=== PATIENT | male | born 1960 | race Hispanic/Latino ===

== ENCOUNTER 2019-05-31 18:44 | Inpatient (IN) | payer OTHER ==
[~2019-05-31 18:44] MED LIST: ISOVUE-370 76%-LOCM 1 ML ONE
--- NOTE | 2019-05-31 19:11 | CT ---
EXAM: BRAIN CT WITHOUT IV CONTRAST: 05/31/19 HISTORY: Syncopal episode, unresponsive. Concern for stroke. FINDINGS: Severe bilateral atrophy, particularly for patient's stated age. No focal mass or midline shift. No i ntra or extra-axial hemorrhage. Endotracheal tube in place with some fluid in the posterior nasophary nx, nasal cavity and sinuses. The mastoids are clear. IMPRESSION: Marked atrophy. No mass or bleed. Fluid in the nasopharynx, nasal cavity and sinuses, presumably seco ndary to intubation. Findings discussed with Dr. Quinones in the Emergency Room at 6:53 p.m. Code CR POS: [facility]
[2019-05-31 19:25] LABS: Actual Bicarbonate (HCO3a) 20.1 mEq/L (22-28); Analyzer IN Cardio ER; Base Excess (BEa) -5.2 mEq/L (-2.0 to +3.0); CO2 Tension 38.9 mmHg (35.0-45.0); Calcium, Ionized 1.08 mmol/L (1.12-1.30); O2 Tension (PaO2) 157.8 mmHg (80.0-100.0); Potassium - ABG Lab 3.97 mmol/L (3.70-5.30); pH, Arterial 7.33 (7.35-7.45)
[2019-05-31 19:26] LABS: Hemoglobin (Hb) 2.9 g/dL (14.0-18.0)
[2019-05-31 19:27] LABS: ALV-art Gradient 221.375 (0-20); Puncture Site LBA
--- NOTE | 2019-05-31 19:30 | CT ---
CT ANGIOGRAM HEAD WITH 3D RENDERING CT ANGIOGRAM NECK WITH 3D RENDERIN05/31/19 HISTORY: Level I stroke, syncopal episode, unresponsive. FINDINGS: The NG tube is noted to be coiled up within the pharynx. Endotracheal tube is noted in place. There i s a second right sided nasal tube which extends into the oropharynx. There are bilateral pleural effu sions, much larger on the left side with patchy bilateral interstitial and alveolar opacity changes t hroughout both lungs concerning for edema and/or pneumonia. CT ANGIO NECK: There are some scattered calcific plaques noted bilaterally. There are some up to borderline sized pr evascular lymph nodes in the left anterior superior mediastinum up to 0.9 cm in size. The origins of the right and left vertebral arteries and common carotid arteries appear within normal limits. There are some calcified plaque changes at the bifurcation regions but no hemodynamically significant steno sis, using NASCET criteria. The right and left vertebral arteries and internal carotid arteries appear unremarkable in the neck. Intracranially, there are some calcified plaque changes involving the intracranial internal carotid a rteries bilaterally. No evidence for major branch occlusion. No evidence for aneurysm. No M1 segment occlusion. IMPRESSION: Some calcified plaque changes bilaterally but no evidence for hemodynamically significant stenosis wi thin the neck. No evidence for major branch occlusion or intracranial aneurysm. NG tube is coiled within the oropharynx. Bilateral pleural effusions much larger on the left side wi th patchy bilateral pulmonary parenchymal changes concerning for asymmetric edema and/or pneumonia. Findings discussed with Dr. Quinones at 7:15 p.m. Code CR POS: [facility]
[2019-05-31 19:45] LABS: INR-International Normal Ratio 1.6; Prothrombin Time 18.7 SEC (12.0-14.7)
[2019-05-31 19:46] LABS: PTT 34.2 SEC (22.9-36.1)
[2019-05-31 20:00] LABS: ALT (SGPT) 9 U/L (8-55); AST (SGOT) 21 U/L (5-34); Acetaminophen Less than 6.0 mcg/mL (10.0-30.0); Albumin 2.1 g/dL (3.5-5.0); Alcohol Less than 10 mg/dL (Less than 10); Alkaline Phosphatase 103 U/L (40-150); Anion Gap 17 mmol/L (10-20); BUN (Urea Nitrogen) 21 mg/dL (8.4-25.7); Bilirubin, Total 0.8 mg/dL (0.2-1.2); Calc. Creatinine Clearance 0 mL/min (70-130); Calcium 7.6 mg/dL (7.8-10.44); Carbon Dioxide 17 mmol/L (22-29); Chloride 105 mmol/L (98-107); Estimated GFR-MDRD 53; Globulin 4.2 g/dL (2.4-3.5); Glucose 124 mg/dL (70-105); Magnesium 3.2 mg/dL (1.6-2.6); Potassium 3.9 mmol/L (3.5-5.1); Protein, Total 6.3 g/dL (6.0-8.3); Salicylate Less than 8.0 mg/dL (15.0-30.0); Sodium 135 mmol/L (136-145)
[2019-05-31 20:11] LABS: Hemoglobin 2.6 g/dL (14.0-18.0)
[2019-05-31 20:14] LABS: CKMB 3.7 ng/mL (0-6.6)
[2019-05-31] MEDS ORDERED: Piperacillin/Tazobactam 4.5 GM VIAL ONE (20:26)
[2019-05-31 20:30] LABS: #Eosinphils 0.1 thou/uL (0.0-0.7); #Lymphocytes 0.6 thou/uL (1.20-3.40); #Monocytes 0.8 thou/uL (0.11-0.59); #Neutrophils 6.6 thou/uL (1.40-6.50); %Basophils 0.3 % (0.0-1.0); %Eosinophils 0.6 % (0.0-10.0); %Lymphocytes 7.2 % (21.0-51.0); %Monocytes 9.7 % (0.0-10.0); %Neutrophils 82.2 % (42.0-75.0); Anisocytosis MODERATE=16-30 cells (100X) (0-5/hpf); Hypochromia MODERATE=16-30 cells (100X) (0-5/hpf); MDiff Complete? YES; Mean Corpuscular HGB CONC 29.8 g/dL (32.0-36.0); Mean Corpuscular Hemoglobin 27.2 pg (27.0-31.0); Mean Corpuscular Volume 91.3 fL (78.0-98.0); Mean Platelet Volume 8.2 fL (7.4-10.4); Platelet Count 168 thou/uL (130-400); Platelet Morphology Comment Appears Adequate; RBC Distribution Width 17.8 % (11.5-14.5); Red Blood Cell (RBC) Count 0.96 mill/uL (4.70-6.10); Reflex for Review?? YES
--- NOTE | 2019-05-31 20:40 | RAD ---
EXAM: CHEST ONE VIEW: 05/31/19 HISTORY: Altered mental status, intubation. NG tube and endotracheal tubes are in satisfactory location. Bilateral pleural effusions, larger on t he left side. Bilateral vascular congestion with patchy bilateral interstitial and alveolar opacity c hanges in the perihilar regions and lower lung zones bilaterally. Appearance could certainly be consi stent with that of asymmetric pulmonary edema, although the possibility of bilateral pneumonia could have a similar appearance. IMPRESSION: NG tube and endotracheal tubes in satisfactory location. Upper range of normal sized heart. Bilateral pleural effusions, larger on the left side with bilateral vascular congestion and patchy bilateral i nterstitial and alveolar opacity changes, evidence for asymmetric bilateral edema versus patchy bilat eral pneumonia. POS: [facility]
[2019-05-31 21:15] LABS: Bilirubin Negative (Negative); Blood, Urine Negative (Negative); Clarity Clear (Clear); Glucose, Urine (Dipstick) Normal (Negative); Leukocyte Negative Leu/uL (Negative); Nitrite Negative (Negative); Protein, Urine (Dipstick) 20 mg/dL (Neg-Trace); Urobilinogen Normal mg/dL (Less than 2)
--- NOTE | 2019-05-31 21:29 | RAD ---
EXAM: CHEST ONE VIEW: 05/31/19 HISTORY: Follow-up central line placement. Left central line noted in place with the tip in the upper superior vena cava. Again noted are bilate ral pleural effusions, larger on the left side as well as bilateral interstitial and alveolar nodular opacity changes throughout both lungs, stable. NG tube and endotracheal tubes remain in satisfactory location. IMPRESSION: Left central line placement without pneumothorax or other acute process. POS: [facility]CK
[2019-05-31 21:44] LABS: Hemoglobin 5.2 g/dL (14.0-18.0)
[2019-05-31] MEDS ORDERED: Propofol 1,000 MG/100 ML VIAL IV ONE (21:57)
[2019-05-31] MEDS ORDERED: Ondansetron PF 4 MG/2 ML Vial IVP PRN (22:07)
[2019-05-31] MEDS ORDERED: Ondansetron ODT 4 MG TAB PO PRN (22:07)
[2019-05-31] MEDS ORDERED: Acetaminophen 650 MG Suppository PR PRN (22:07)
[2019-05-31] MEDS ORDERED: Acetaminophen 325 MG TAB PO PRN (22:07)
[2019-05-31] MEDS ORDERED: Calcium Gluc 4.6 MEQ/10 ML (100 MG/ML) SLOW IVP SCH (22:17)
[2019-05-31 22:41] LABS: #Lymphocytes 0.7 thou/uL (1.20-3.40); #Monocytes 0.6 thou/uL (0.11-0.59); #Neutrophils 6.1 thou/uL (1.40-6.50); %Basophils 0.4 % (0.0-1.0); %Eosinophils 0.2 % (0.0-10.0); %Lymphocytes 8.9 % (21.0-51.0); %Monocytes 8.1 % (0.0-10.0); %Neutrophils 82.5 % (42.0-75.0); Hemoglobin 5.4 g/dL (14.0-18.0); Mean Corpuscular HGB CONC 31.9 g/dL (32.0-36.0); Mean Corpuscular Hemoglobin 28.3 pg (27.0-31.0); Mean Corpuscular Volume 88.5 fL (78.0-98.0); Mean Platelet Volume 7.4 fL (7.4-10.4); Platelet Count 169 thou/uL (130-400); Red Blood Cell (RBC) Count 1.92 mill/uL (4.70-6.10); White Blood Cell (WBC) Count 7.4 thou/uL (4.8-10.8)
[2019-05-31] MEDS ORDERED: Ventilator Sedation Protocol 1 EACH FS ONE (22:47)
[2019-05-31 23:05] LABS: Troponin I 0.084 ng/mL (< 0.028)
[2019-05-31 23:30] LABS: Lactic Acid 1.5 mmol/L (0.5-2.2)
[2019-05-31] MEDS ORDERED: Morphine 2 MG/ML SYRINGE SLOW IVP PRN (23:31)
[2019-05-31] MEDS ORDERED: DISCONTINUE PREVIOUS NARCOTIC PAIN MEDICATIONS AND BENZODIAZEPINES FS SCH (23:31)
[2019-05-31] MEDS ORDERED: Propofol 1,000 MG/100 ML VIAL IV PRN (23:31)
[2019-05-31] MEDS ORDERED: Fentanyl BOLUS 250 ML IVPB PRN (23:31)
[2019-05-31] MEDS ORDERED: Propofol BOLUS 1,000 MG/100 ML VIAL IV PRN (23:31)
[2019-05-31] MEDS ORDERED: Lorazepam 2 MG/ML VIAL SLOW IVP PRN (23:31)
[2019-05-31] MEDS ORDERED: fentaNYL Citrate/PF 2,000 MCG in Sodium Chloride 0.9% 60 ML IV SCH (23:31)
--- NOTE | 2019-05-31 23:58 | HP ---
PRIMARY CARE DOCTOR: The patient is in snf. CODE STATUS: Full code. TIME OF EVALUATION: 10:00 p.m. CHIEF COMPLAINT: The patient collapsed. HISTORY OF PRESENT ILLNESS: This is a 59-year-old male patient with past medical history of hep C cirrhosis of the liver, hypertension, history of encephalopathy, came to the hospital after having an episode of going to the shower and patient basically passed out and collapsed. The patient was intubated for airway protection. He was seen in the ER. He was found to have hemoglobin of 2.5, which seems to be chronic. The patient does have brown stools and seem to have GI bleeding, however, the amount of blood that the patient has lost is significant. We will do a CT abdomen looking for any source of bleeding for these amount of blood. The patient after initial transfusion, has been waking up, intubated, was following simple commands during my examination. Symptoms are constant. No clear triggers. No alleviating factors. This episode is new for the patient. REVIEW OF SYSTEMS: Unable to obtain. The patient is intubated, unable to give full information. KNOWN ALLERGIES: No known drug allergies. REPORTED MEDICATIONS: 1. Duloxetine. 2. Lactulose. 3. Midodrine. 4. Omeprazole. 5. Osmolite. 6. Xifaxan. PHYSICAL EXAMINATION: VITAL SIGNS: On presentation, blood pressure 110/60 with heart rate 94, respiratory rate was 10. Pain was 0/10, oxygen saturation was 100 on the vent. GENERAL APPEARANCE: The patient is intubated, sedated. HEENT: Eyes, normal conjunctivae. Moist oral mucosa. Anicteric. Very pale. RESPIRATORY: Bilateral air entry. No rales or wheezes. Symmetric expansion. The patient is intubated. CARDIOVASCULAR: Normal rate and regular rhythm. No murmurs. No gallop. No edema. ABDOMEN: Mildly distended, soft bowel sounds, baseline range of motion and strength. SKIN: Warm, intact. No pallor. No rash. Capillary refill seems to be intact. NEUROLOGIC: The patient is intubated, sedated, unable to fully explore. No evidence of any new focal weakness. PSYCH: Unable to fully explore. DIAGNOSTIC DATA: EKG was reviewed. The patient has sinus tachycardia with rate of 106 with ME 158, QRS 86, QT corrected 507. No specific ST and T-wave abnormalities. Brain CT showed marked atrophy. No other significant acute abnormalities. CT angio was done and shows old calcified plaques and changes bilateral, but no evidence of hemodynamically significant stenosis within the neck. No evidence for major branch occlusion or any aneurysm. Bilateral pleural effusion most likely on the left side with patchy bilateral pulmonary parenchymal changes concerning for asymmetric edema or pneumonia. Chest x-ray verified NG tube and ET tube and they are in satisfactory position. Bilateral pleural effusion noted on the left side with bilateral vascular congestion and patchy bilateral interstitial alveolar opacity changes and evidence for asymmetric bilateral edema versus patchy bilateral pneumonia. Chest x-ray, left central line placement without pneumothorax or other process. LABORATORY DATA: Labs are reviewed. The patient has white count of 8, hemoglobin 2.6, MCV 91.3, platelets 168, repeat hemoglobin after two PRBCs of 5.4, PT 18.6, INR is 1.6, PTT is 34.2. Blood gas showed pH 7.33 with pCO2 of 38 and PO2 of 157. Chemistry; sodium 135, potassium 3.9, chloride 105, carbon dioxide 17, BUN 21, creatinine 1.37. Will have any previous records from labs before. GFR 53, glucose 124, lactic acid 6.2, calcium 7.6, magnesium 3.2, total bilirubin 0.9, AST 21, ALT 9, alkaline phosphatase 103, ammonia 71, CK 65, troponin 0.058, serum total protein 6.3, albumin 2.1, globulin 4.2, albumin to globulin ratio 0.5, and TSH 5.0. Urine was done, the patient's urine was negative. Toxicology was negative. ASSESSMENT AND PLAN: The patient will be placed in the hospital with following medical problems: 1. Acute encephalopathy of unclear etiology. The patient just collapsed in snf and was unable to protect airway, and for that reason was intubated. The patient was following commands prior to my examination as per ER report. The patient is now sedated, most likely tomorrow to be able to reassess mentation. 2. He has severe blood loss anemia. The patient's hemoglobin of 2.6 on presentation and positive stool guaiac. We will consult GI. We will monitor hemoglobin. The patient is receiving total of four PRBCs. After two PRBCs, the hemoglobin was 5.4. We are expecting after 4 units, the hemoglobin will remain around 7 to 8. We will consult GI. We will follow recommendations. The patient has been started on Protonix. CT abdomen will be done to rule out any intraabdominal bleeding given the large amount of blood being lost and because the abdomen is distended. We will transfuse FFP given the need for 4 units of red blood cells and because the INR was in the high side of 1.6, it is likely secondary to underlying liver cirrhosis. We will give calcium gluconate 1 gm. 3. The patient is anticoagulated. INR is 1.6. It is likely secondary to liver cirrhosis. We will give FFP. We will monitor and treat accordingly. 4. Metabolic acidosis that is likely secondary to lactic acidosis in this case. The patient with underlying liver cirrhosis, this might be the main etiology being lactic acidosis type B. 5. Mildly elevated troponin of 0.058. This is likely non ST-elevation myocardial infarction type 2 due to severe anemia, likely an acute coronary syndrome. We will monitor. 6. Hypoalbuminemia, this is likely secondary to liver disease and likely related to third spacing seen in bilateral pleural effusion. 7. Deep venous thrombosis prophylaxis. 8. Controlled hypertension, reconcile home medications and treat accordingly. Now, the patient is stable with low hemoglobin. We will not restart blood pressure medication at this point. Job ID: [id number]
[2019-06-01] MEDS: Pantoprazole 80 MG, Admixture Fee 1 EACH in Sodium Chloride 0.9% 100 ML IVP SCH ×3 (00:18→20:23)
[2019-06-01 02:08] LABS: Troponin I 0.107 ng/mL (< 0.028)
[2019-06-01] MEDS: Piperacillin/Tazobactam 4.5 GM in Sodium Chloride 0.9% 100 ML IVPB SCH ×4 (04:39→20:23)
[2019-06-01 05:39] LABS: Anion Gap 10 mmol/L (10-20); BUN (Urea Nitrogen) 23 mg/dL (8.4-25.7); Calc. Creatinine Clearance 60 mL/min (70-130); Calcium 7.9 mg/dL (7.8-10.44); Carbon Dioxide 21 mmol/L (22-29); Chloride 106 mmol/L (98-107); Estimated GFR-MDRD 57; Glucose 124 mg/dL (70-105); Potassium 4.4 mmol/L (3.5-5.1); Sodium 133 mmol/L (136-145)
[2019-06-01 06:09] LABS: #Lymphocytes 0.7 thou/uL (1.20-3.40); #Monocytes 0.9 thou/uL (0.11-0.59); #Neutrophils 8.2 thou/uL (1.40-6.50); %Basophils 0.2 % (0.0-1.0); %Eosinophils 0.1 % (0.0-10.0); %Lymphocytes 7.5 % (21.0-51.0); %Monocytes 9.4 % (0.0-10.0); %Neutrophils 82.8 % (42.0-75.0); Hemoglobin 8.4 g/dL (14.0-18.0); Mean Corpuscular HGB CONC 32.7 g/dL (32.0-36.0); Mean Corpuscular Hemoglobin 28.8 pg (27.0-31.0); Mean Platelet Volume 7.7 fL (7.4-10.4); Platelet Count 181 thou/uL (130-400); RBC Distribution Width 15.1 % (11.5-14.5); Red Blood Cell (RBC) Count 2.93 mill/uL (4.70-6.10); White Blood Cell (WBC) Count 9.9 thou/uL (4.8-10.8)
[2019-06-01 07:22] LABS: Actual Bicarbonate (HCO3a) 20.9 mEq/L (22-28); Base Excess (BEa) -2.7 mEq/L (-2.0 to +3.0); CO2 Tension 31.2 mmHg (35.0-45.0); Calcium, Ionized 1.07 mmol/L (1.12-1.30); Carboxyhemoglobin (COHb) 1.7 gm% (0.0-3.0); Hemoglobin (Hb) 8.6 g/dL (14.0-18.0); O2 Tension (PaO2) 74.8 mmHg (80.0-100.0); Potassium - ABG Lab 4.37 mmol/L (3.70-5.30); pH, Arterial 7.44 (7.35-7.45)
[2019-06-01 07:28] LABS: Puncture Site RB
[2019-06-01 10:14] LABS: #Lymphocytes 0.7 thou/uL (1.20-3.40); #Monocytes 0.8 thou/uL (0.11-0.59); #Neutrophils 6.6 thou/uL (1.40-6.50); %Basophils 0.3 % (0.0-1.0); %Eosinophils 0.2 % (0.0-10.0); %Lymphocytes 8.1 % (21.0-51.0); %Monocytes 9.7 % (0.0-10.0); %Neutrophils 81.8 % (42.0-75.0); Hemoglobin 7.7 g/dL (14.0-18.0); Mean Corpuscular HGB CONC 33.2 g/dL (32.0-36.0); Mean Corpuscular Hemoglobin 29.1 pg (27.0-31.0); Mean Corpuscular Volume 87.5 fL (78.0-98.0); Mean Platelet Volume 7.4 fL (7.4-10.4); Platelet Count 156 thou/uL (130-400); RBC Distribution Width 15.4 % (11.5-14.5); Red Blood Cell (RBC) Count 2.66 mill/uL (4.70-6.10); White Blood Cell (WBC) Count 8.1 thou/uL (4.8-10.8)
--- NOTE | 2019-06-01 10:21 | CT ---
PRELIMINARY REPORT/[facility]/EMERGENCY AFTER HOURS PROCEDURE EXAM: CT Abdomen and Pelvis Without Contrast EXAM DATE/TIME: 06/01/2019 12:48 AM CLINICAL HISTORY: 59 years old, male; Other: Patient found down; Patient HX: PT was a stroke alert earlier and has had contrast. M59 presents to the ED via EMS from [facility] after patient was found unresponsive in bathroom o f [facility] cell. Onset of symptoms began 1720. PT reported to be non compliant with medications. TECHNIQUE: Imaging protocol: Axial computed tomography images of the abdomen and pelvis without contrast. Coron al and sagittal reformatted images were created and reviewed. COMPARISON: No relevant prior studies available. FINDINGS: Tubes, catheters and devices: Nasogastric tube with distal tip in the body of the stomach. Pleural space: There is small right pleural effusion and possible small moderate left base empyema an d there is bibasilar pneumonitis and/or atelectasis. Liver: A TIPS stent is present. There is surgical clips or coils in the right lobe of the liver. Gallbladder and bile ducts: There are postoperative changes of cholecystectomy. Pancreas: Normal. No ductal dilation. Spleen: Normal. No splenomegaly. Adrenals: Normal. No mass. Kidneys and ureters: There is a simple cyst of the left kidney. Stomach and bowel: There is a right inguinal hernia with hernia sac measuring 5.3 cm diameter and con taining a short segment of distal small bowel but no resulting small bowel obstruction or other signs of incarceration. There is wall thickening in the mid and proximal colon which may partly be related to underdistention but cannot exclude nonspecific colitis. Appendix: The appendix is unremarkable and seen best on axial image 69 of series 2. Intraperitoneal space: Normal. No free air. No significant fluid collection. Vasculature: There are atherosclerotic aortic and iliac and femoral artery calcifications. Lymph nodes: Normal. No enlarged lymph nodes. Bladder: A Rajput catheter is present in the urinary bladder. Reproductive: There are prostate gland calcifications. Bones/joints: No acute fracture. No dislocation. Soft tissues: Unremarkable. IMPRESSION: 1. There is small right pleural effusion and possible small moderate left base empyema and there is b ibasilar pneumonitis and/or atelectasis. 2. There is a right inguinal hernia with hernia sac measuring 5.3 cm diameter and containing a short segment of distal small bowel but no resulting small bowel obstruction or other signs of incarceratio n. 3. There is wall thickening in the mid and proximal colon which may partly be related to underdistent ion but cannot exclude nonspecific colitis. Thank you for allowing us to participate in the care of your patient. Dictated and Authenticated by: Eusebio Gordon MD 06/01/2019 1:32 AM Central Time ([place] & [place]) FINAL REPORT CT ABDOMEN WITH CONTRAST: CT PELVIS WITH CONTRAST: HISTORY: Evaluate for retroperitoneal bleed. COMPARISON: None. FINDINGS: ABDOMEN: Bilateral pleural effusions with consolidation due to atelectasis. A component of aspirati on or pneumonia in the middle lobe and right lower lobe cannot be excluded. The left-sided pleural f luid appears to have some peripheral enhancement, suggesting an empyema. The heart is enlarged. No significant pericardial fluid. There is evidence of a previous TIPS procedure. The liver, spleen, p ancreas, and adrenal glands have appropriate enhancement. Symmetric enhancement of the kidneys. No obstructive uropathy. Hypodensity in the left renal cortex measures 1.3 cm and cannot be further characterized. There is stranding of the abdominal mesentery with a small amount of fluid in both paracolic gutters. Limited evaluation of the alimentary canal by the lack of oral contrast. No evidence of high-grade b owel obstruction. There is a right inguinal hernia, containing mesenteric fat and multiple segments of small bowel through the defect. No evidence of bowel incarceration. The ileocecal junction is un remarkable. Normal caliber appendix. PELVIS: No mass, lymphadenopathy, free air, or free fluid. Symmetric attenuation of the iliopsoas m uscles. No evidence of a retroperitoneal hematoma. IMPRESSION: 1. Bilateral pleural effusions with lung parenchymal changes as described above and in the prelimina ry report by [facility]. 2. Right inguinal hernia without evidence of incarceration. No associated bowel obstruction. This report is in agreement with the preliminary report by [facility]. CODE QA POS: OFF
--- NOTE | 2019-06-01 12:29 | PDOC.HOSPP ---
- Subjective Subjective: Patient seen and examined, intubated, no family at bedside, police officers present. - Objective Vital Signs & Weight: Vital Signs (12 hours) Temp Pulse Pulse Resp BP BP Pulse Ox 06/01/19 11:00 98.4 F 06/01/19 10:34 78 103/73 06/01/19 10:00 14 06/01/19 07:57 16 99 06/01/19 07:47 84 108/71 06/01/19 07:21 98.6 F 82 15 108/71 100 06/01/19 07:00 98.7 F 84 17 94/62 98 06/01/19 06:00 14 06/01/19 04:09 78 111/72 06/01/19 04:00 98.8 F 14 06/01/19 02:00 14 Weight Weight 149 lb 14.629 oz Most Recent Monitor Data Heart Rate from ECG 73 NIBP 103/61 NIBP BP-Mean 75 Respiration from ECG 14 SpO2 100 I&O: 05/31/19 06/01/19 06/02/19 06:59 06:59 06:59 Intake Total 932 440 Output Total 570 185 Balance 362 255 Result Diagrams: 06/01/19 10:04 06/01/19 05:05 ROS - Review of Systems All systems: All other ROS were reviewed and found negative. - Medication Medications: Active Medications Generic Name Dose Route Start Last Admin Trade Name Freq PRN Reason Stop Dose Admin Piperacillin Sod/Tazobactam 100 mls @ 200 mls/hr 06/01/19 03:00 06/01/19 09: 44 Sod 4.5 gm/ Sodium Chloride IVPB 100 mls 0300,0900,1500,2100 JESSIE Administration Pantoprazole Sodium 80 mg/ 100 mls @ 10 mls/hr 05/31/19 22:30 06/01/19 10:22 Miscellaneous Medication 1 IVP 100 mls each/ Sodium Chloride INF JESSIE Administration - Exam NAD Eye: PERRL, anicteric sclera ENT: normocephalic atraumatic Neck: supple Heart: RRR, no murmur, no gallops Respiratory: normal chest expansion, rhonchi Gastrointestinal: soft, non-tender, non-distended Skin: normal turgor, no lesions Hosp A/P (1) Anemia Code(s): D64.9 - ANEMIA, UNSPECIFIED Status: Acute (2) Respiratory failure Code(s): J96.90 - RESPIRATORY FAILURE, UNSP, UNSP W HYPOXIA OR HYPERCAPNIA Status: Acute (3) GI bleed Code(s): K92.2 - GASTROINTESTINAL HEMORRHAGE, UNSPECIFIED Status: Acute - Plan - Hgb much better - monitor for now - work up pending - appreciate input by subspecialists - labs in AM - no family at bedside.
[2019-06-01 16:12] LABS: #Basophils 0.1 thou/uL (0.0-0.2); #Lymphocytes 0.5 thou/uL (1.20-3.40); #Monocytes 0.8 thou/uL (0.11-0.59); #Neutrophils 7.2 thou/uL (1.40-6.50); %Basophils 1.6 % (0.0-1.0); %Eosinophils 0.5 % (0.0-10.0); %Lymphocytes 5.5 % (21.0-51.0); %Monocytes 9.1 % (0.0-10.0); %Neutrophils 83.3 % (42.0-75.0); Hemoglobin 7.7 g/dL (14.0-18.0); Mean Corpuscular HGB CONC 33.1 g/dL (32.0-36.0); Mean Corpuscular Hemoglobin 28.7 pg (27.0-31.0); Mean Corpuscular Volume 86.6 fL (78.0-98.0); Mean Platelet Volume 7.5 fL (7.4-10.4); Platelet Count 144 thou/uL (130-400); RBC Distribution Width 15.6 % (11.5-14.5); Red Blood Cell (RBC) Count 2.68 mill/uL (4.70-6.10); White Blood Cell (WBC) Count 8.6 thou/uL (4.8-10.8)
--- NOTE | 2019-06-01 23:51 | CON ---
DATE OF CONSULTATION: 06/01/2019 HISTORY OF PRESENT ILLNESS: Raffaele Ruelas is a 59-year-old male admitted with a hemoglobin of less than 3 g. He is being seen by Gastroenterology. He was transferred to the emergency department after he had syncope. He is currently intubated. PAST MEDICAL HISTORY: Remarkable for; 1. Hepatitis C. 2. Hypertension. 3. History of hepatic encephalopathy. SOCIAL HISTORY: He is not smoking or drinking that I am aware of. PAST MEDICAL HISTORY: Otherwise unknown. FAMILY HISTORY: Unknown. ALLERGIES: NONE REPORTED. MEDICATIONS: Prior to admission; 1. Duloxetine. 2. Lactulose. 3. Midodrine. 4. Omeprazole. 5. Osmolite. 6. Xifaxan. REVIEW OF SYSTEMS: 10 point review of systems completed, not obtainable. The patient is intubated. PHYSICAL EXAMINATION: GENERAL: Raffaele Ruelas is a 59-year-old male. VITAL SIGNS: Blood pressure is 95/50, heart rate is 91, respiratory rate 16, oximetry is 100%. HEENT: Pupils are reactive. Sclerae are anicteric. NECK: Supple. LUNGS: Clear. HEART: Regular rhythm. S1 and S2 are normal. ABDOMEN: Soft and nontender without masses. EXTREMITIES: Without clubbing, cyanosis, or edema. LABORATORY DATA: White count 8.6, hemoglobin now 7.7, up from 2.6, platelets 144. Sodium 133, potassium 4.4, chloride 106, bicarb 21, BUN 23, creatinine 1.29. PH 7.44, CO2 31, PO2 74. Chest x-ray done last night shows bilateral pleural effusions. He has a coagulopathy with an INR of 1.6. IMPRESSION: 1. Respiratory failure. 2. Hepatic encephalopathy. He is requiring almost no sedation. His ammonia was 71. 3. Acute on chronic blood loss, MCV of 91 is unusual. 4. No immature cells were reported on his peripheral smear. 5. He appears stable at this time, does not appear to be acutely bleeding. He will need endoscopy at some point. 6. There is no indication for thoracentesis at this time. He will remain mechanically ventilated. We will consider weaning once his mental status improves. His hepatic encephalopathy needs to be treated. CRITICAL CARE TIME: 35 minutes. Job ID: [id number] MTDD
--- NOTE | 2019-06-02 01:40 | CON ---
DATE OF CONSULTATION: 06/01/2019 REASON FOR CONSULTATION: Anemia, cirrhosis. CONSULTING PHYSICIAN: Tracy Ashraf MD HISTORY OF PRESENT ILLNESS: The patient is a 59-year-old male with past medical history of hypertension, chronic hepatitis C, and resultant cirrhosis with mention of complications by hepatic encephalopathy, presenting with profound anemia. At the time of evaluation, the patient was intubated and sedated and could not contribute any meaningful information to the interview with all information obtained through chart review. Per chart review, it was noted that the patient was incarcerated in a fpc and informed the guards that he was not feeling well. Upon the guards' return to evaluate the patient, he was unconscious in the shower. He was then subsequently intubated and transferred to [facility] for further evaluation, at which point, he was noted to have a profound anemia with a hemoglobin of 2.5. It is unclear if the patient had been exhibiting any hematemesis, melena, or hematochezia prior to admission, nor do we have any information about the patient's baseline H and H as well. REVIEW OF SYSTEMS: A 10-category review of systems could not be obtained due to the patient's current ventilated status. PAST MEDICAL HISTORY: As per HPI. PAST SURGICAL HISTORY: Unknown. FAMILY HISTORY: Unknown. SOCIAL HISTORY: I assume he does not engage in tobacco, alcohol, or illicit drug use given his incarcerated status. OUTPATIENT MEDICATIONS: Reviewed. ALLERGIES: NO KNOWN DRUG ALLERGIES. PHYSICAL EXAMINATION: VITAL SIGNS: Temperature 99.2, pulse 84, blood pressure 104/68, respiratory rate 14, saturating 99% on mechanical ventilation. GENERAL: The patient is intubated and sedated, in no acute distress. HEENT: Normocephalic, atraumatic. NECK: Supple. No JVD or scleral icterus noted. CARDIOVASCULAR: Regular rate and rhythm. RESPIRATORY: Clear to auscultation bilaterally, although with coarse breath sounds indicative of mechanical ventilation. ABDOMEN: Normoactive bowel sounds. Soft, nontender, nondistended. EXTREMITIES: No cyanosis, clubbing, or edema. LABORATORY DATA: CBC with a white blood cell count of 9.9, hemoglobin 8.4, hematocrit 25.8, platelets 181. INR 1.6. Chemistry with a sodium of 133, potassium 4.4, chloride 106, CO2 21, BUN 23, creatinine 1.29, glucose 124, AST 21, ALT 9, alkaline phosphatase 103, total bilirubin 0.8, albumin 2.1. TSH 5.02. Troponins up trending from 0.05 to 0.08 to 0.1. IMAGING DATA: CT of the abdomen and pelvis was obtained on May 31, 2019, which showed presence of a TIPS within the liver as well as surgical clips or coils within the right lobe of the liver. There were postoperative changes consistent with cholecystectomy. There was also a right inguinal hernia with hernia sac measuring 5.3 cm and containing a short segment of distal small bowel, but no evidence of obstruction or incarceration. There was also wall thickening of the mid and proximal colon, which could be related to under distention. Also noted was small right pleural effusion with possible small to moderate left base empyema with bibasilar pneumonitis and/or atelectasis. ASSESSMENT AND PLAN: The patient is a 59-year-old male with past medical history of hypertension, chronic hepatitis C infection, and cirrhosis with evidence of a transhepatic portosystemic shunt, which is likely contributing to hepatic encephalopathy (being treated with lactulose and Xifaxan as an outpatient), presenting with profound anemia. 1. Anemia. Per chart review, there is no mention of hematemesis, melena, or hematochezia as an outpatient that might lend itself toward a GI bleed. However, the patient does have a concurrent diagnosis of cirrhosis, which does increase the likelihood of esophageal varix formation, which could potentially lead to profound anemia very quickly. However, this is less likely given the presence of a patent TIPS, which would decompress that region making the rupture unlikely. Portal hypertensive gastropathy could also contribute to an anemia, but again should be decompressed with the TIPS. At this point, the etiology for his profound anemia is unknown with current differential including gastritis, peptic ulcer disease, Dieulafoy lesion, arteriovenous malformation, esophageal varices (less likely), colitis (less likely) and/or GI neoplasm. 2. RECOMMENDATIONS: a. Would continue to trend H and H and transfuse as necessary to maintain an H and H of 7/21. b. Continue to monitor clinically for signs of active GI bleeding. c. Would continue with resuscitative efforts with infusion of blood product to bring the patient's H and H to at least 7/21. d. The patient will need an upper endoscopy and colonoscopy prior to discharge, but would hold on these modalities at the current point in time in favor of resuscitative efforts. 3. Cirrhosis. The patient is presenting with a stated history of hepatic cirrhosis, which is presumably due to chronic hepatitis C infection. It is unknown whether or not he was actually treated for this infection. However, there is presence of a TIPS within the liver, which may indicate either severe esophageal varices or prior portal hypertensive gastropathy, or even refractory ascites in the past. However, without prior records, this is largely speculation. Given his outpatient medications including lactulose and rifaximin, most likely the TIPS is contributed to hepatic encephalopathy and the patient would benefit from replacement on these medications. 4. RECOMMENDATIONS: a. We will start the patient on lactulose 15 mL b.i.d. in addition to rifaximin 550 mg b.i.d. for hepatic encephalopathy. b. We would attempt to obtain any outside medical records pertaining to his cirrhosis. We will continue to follow. Please call with any questions. Job ID: [id number]
[2019-06-02] MEDS: Piperacillin/Tazobactam 4.5 GM in Sodium Chloride 0.9% 100 ML IVPB SCH ×4 (02:31→20:46)
[2019-06-02] MEDS: Pantoprazole 80 MG, Admixture Fee 1 EACH in Sodium Chloride 0.9% 100 ML IVP SCH ×2 (05:44→16:21)
[2019-06-02 05:50] LABS: Band 6 % (5-11); Eosinophils 1 % (0-10); Hemoglobin 7.3 g/dL (14.0-18.0); Lymphocytes 10 % (21-51); MDiff Complete? YES; Mean Corpuscular HGB CONC 33.3 g/dL (32.0-36.0); Mean Corpuscular Hemoglobin 29.4 pg (27.0-31.0); Mean Corpuscular Volume 88.2 fL (78.0-98.0); Mean Platelet Volume 7.4 fL (7.4-10.4); Monocytes 4 % (0-10); Neutrophil 79 % (42-75); Platelet Count 132 thou/uL (130-400); RBC Distribution Width 16.2 % (11.5-14.5); Red Blood Cell (RBC) Count 2.48 mill/uL (4.70-6.10); White Blood Cell (WBC) Count 6.9 thou/uL (4.8-10.8)
[2019-06-02 05:54] LABS: Anion Gap 10 mmol/L (10-20); BUN (Urea Nitrogen) 21 mg/dL (8.4-25.7); Calc. Creatinine Clearance 70 mL/min (70-130); Calcium 7.9 mg/dL (7.8-10.44); Carbon Dioxide 24 mmol/L (22-29); Chloride 110 mmol/L (98-107); Estimated GFR-MDRD 67; Glucose 112 mg/dL (70-105); Potassium 3.6 mmol/L (3.5-5.1); Sodium 140 mmol/L (136-145)
[2019-06-02 07:32] LABS: Actual Bicarbonate (HCO3a) 21.5 mEq/L (22-28); Base Excess (BEa) -2.1 mEq/L (-2.0 to +3.0); CO2 Tension 29.9 mmHg (35.0-45.0); Carboxyhemoglobin (COHb) 2.4 gm% (0.0-3.0); O2 Tension (PaO2) 115.6 mmHg (80.0-100.0); pH, Arterial 7.47 (7.35-7.45)
[2019-06-02 07:33] LABS: ALV-art Gradient 132.225 (0-20); Calcium, Ionized 1.09 mmol/L (1.12-1.30); Puncture Site LRA
--- NOTE | 2019-06-02 09:53 | PRG ---
DATE OF SERVICE: 06/02/2019 SUBJECTIVE: Mr. Ruelas is alert. He holds up 2 fingers quickly. OBJECTIVE: VITAL SIGNS: Respiratory rates in the teens. Minute volume was 8 L a minute. Blood pressure 103/66, heart rate is 90. LUNGS: Clear. HEART: Regular rhythm. S1 and S2 are normal. ABDOMEN: Soft and nontender. EXTREMITIES: Without clubbing, cyanosis, or edema. He will have a spontaneous breathing trial today. He has patchy infiltrates bilaterally on his chest x-ray, but his lung compliance is not a large issue, so I would think he would successfully wean from mechanical ventilation. I suspect he has a coexisting aspiration pneumonia. His hepatic encephalopathy appears to be resolving. With regard to his anemia, his hemoglobin is stable at 7.3, probably needs another unit of packed cells with some Lasix. Blood gas today shows pH 7.47, CO2 of 29, pO2 of 115, that is only on 40%, 5 of PEEP. He is not intubated for respiratory distress, but was intubated for his encephalopathy, so he should wean successfully today if he passes spontaneous breathing trial. Critical care time is 35 minutes. Job ID: [id number] MTDD
--- NOTE | 2019-06-02 11:07 | RAD ---
SINGLE VIEW CHEST: Date: 06/02/19 HISTORY: Ventilated patient with respiratory failure. COMPARISON: 05/31/19. FINDINGS: Single view of the chest shows normal sized cardiomediastinal silhouette. The lines and tubes are unc hanged in position. There is a small left pleural effusion with adjacent atelectasis. The patient nate ears to have a TIPS stent in the right upper quadrant of the abdomen. There are diffuse stable multif ocal infiltrates seen in the lungs. IMPRESSION: Stable exam. POS: [facility]
--- NOTE | 2019-06-02 15:18 | PDOC.HOSPP ---
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 Evaluation revealed severe anemia with Hb 2.5. Was intubated in the ER on 05/31/2019 for airway protection and was extubated on 06/02/2019. Doing well respitaory [place] post extubation.No hx of hematemesis or hematochezia. - Objective Vital Signs & Weight: Vital Signs (12 hours) Temp Pulse Resp BP Pulse Ox 06/02/19 14:44 86 15 98 06/02/19 11:00 98.8 F 06/02/19 10:41 84 16 99 06/02/19 08:00 17 99 06/02/19 07:00 98.9 F 06/02/19 06:48 72 99/64 06/02/19 06:47 73 14 99 06/02/19 06:00 14 06/02/19 04:19 83 06/02/19 04:00 14 Weight Weight 151 lb 0.266 oz Most Recent Monitor Data Heart Rate from ECG 85 NIBP 104/62 NIBP BP-Mean 76 Respiration from ECG 15 SpO2 99 I&O: 06/01/19 06/02/19 06/03/19 06:59 06:59 06:59 Intake Total 932 1757 100 Output Total 570 1235 525 Balance 362 522 -425 Result Diagrams: 06/02/19 05:10 06/02/19 05:10 ROS - Review of Systems All systems: All other ROS were reviewed and found negative. - Medication Medications: Active Medications Generic Name Dose Route Start Last Admin Trade Name Freq PRN Reason Stop Dose Admin Albuterol/Ipratropium 3 ml 06/01/19 14:00 06/02/19 14:44 Duoneb NEB 3 ml [id number] JESSIE Administration Piperacillin Sod/Tazobactam 100 mls @ 200 mls/hr 06/01/19 03:00 06/02/19 08: 38 Sod 4.5 gm/ Sodium Chloride IVPB 100 mls 0300,0900,1500,2100 JESSIE Administration Pantoprazole Sodium 80 mg/ 100 mls @ 10 mls/hr 05/31/19 22:30 06/02/19 05:44 Miscellaneous Medication 1 IVP 100 mls each/ Sodium Chloride INF JESSIE Administration Lactulose 10 gm 06/02/19 09:00 06/02/19 08:38 Lactulose PO 10 gm BID JESSIE Administration - Exam awake alert Eye: PERRL ENT: normocephalic atraumatic, moist mucosa Neck: no JVD Heart: RRR, murmur present (soft systolic murmur) Respiratory: no wheezes, no rales, no ronchi (fair air entry bilaterally with some transmitted sound) Gastrointestinal: soft, non-tender, non-distended, normal bowel sounds Extremities: no cyanosis, no edema Neurological: CN's grossly intact, no focal deficits Psychiatric: A&O x 3 (mild confusion noted) Hosp A/P (1) Severe anemia Code(s): D64.9 - ANEMIA, UNSPECIFIED Status: Acute (2) Syncope and collapse Code(s): R55 - SYNCOPE AND COLLAPSE Status: Acute (3) Acute encephalopathy Code(s): G93.40 - ENCEPHALOPATHY, UNSPECIFIED Status: Acute (4) GI bleed Code(s): K92.2 - GASTROINTESTINAL HEMORRHAGE, UNSPECIFIED Status: Acute (5) Elevated troponin Code(s): R74.8 - ABNORMAL LEVELS OF OTHER SERUM ENZYMES Status: Acute (6) Coagulopathy Status: Acute (7) Hepatitis C infection Code(s): B19.20 - UNSPECIFIED VIRAL HEPATITIS C WITHOUT HEPATIC COMA Status: Acute (8) Hepatic encephalopathy Code(s): K72.90 - HEPATIC FAILURE, UNSPECIFIED WITHOUT COMA Status: Acute - Plan monitor H/H and transfuse as needed Continue PPI infusion. endoscopic evaluation as per GI Continue lactulose and xifaximin as per GI Get iron chemistry
[2019-06-02 18:58] LABS: Hemoglobin 7.9 g/dL (14.0-18.0)
[2019-06-02] MEDS: Rifaximin 550 MG TAB PO SCH (20:46)
--- NOTE | 2019-06-02 22:40 | PRG ---
DATE OF SERVICE: 06/02/2019 REASON FOR CONSULTATION: Anemia and cirrhosis. SUBJECTIVE: The patient did well overnight with no acute events or problems. He was able to pass his spontaneous breathing trials earlier today and was subsequently extubated. Upon questioning the patient today, he was able to follow simple commands and was able to converse in Thai. Currently, he denies any nausea, vomiting, fevers, chills, hematemesis, melena, or hematochezia. He also denies any abdominal pain. However, he could not give a significant amount of meaningful information of his clinical circumstances prior to this admission and his thought processes were somewhat slow during the course of the interview. OBJECTIVE: VITAL SIGNS: Temperature 98.6, pulse 91, blood pressure 110/73, respiratory rate 19, and saturating 94% on room air. GENERAL: The patient is lying in bed, in no acute distress. Alert and oriented x2. CARDIOVASCULAR: Regular rate and rhythm. RESPIRATORY: Clear to auscultation bilaterally. ABDOMEN: Normoactive bowel sounds. Soft and nontender. Mild abdominal distention. EXTREMITIES: No cyanosis, clubbing, or edema. LABORATORY DATA: CBC with a white blood cell count of 6.9, hemoglobin 7.3, hematocrit 21.9, and platelets 132. Repeat H and H later in the day showed a hemoglobin of 7.9 and a hematocrit of 23.9. Chemistry with a sodium of 140, potassium 3.6, chloride 110, CO2 of 24, BUN 21, creatinine 1.12, and glucose 112. IMAGING DATA: No current GI imaging is available for review. ASSESSMENT AND PLAN: The patient is a 59-year-old male with past medical history of hypertension, chronic hepatitis C infection (unknown if he has been treated) and cirrhosis complicated by hepatic encephalopathy, presenting with significant anemia. Anemia: The patient initially presented to the hospital with a profound anemia with a hemoglobin of 2.5 on admission. Unfortunately, there is very little information regarding his clinical status prior to admission with no stated history of hematemesis, melena, or hematochezia on the outpatient basis. Per conversation with the patient today, he could also not recall any of the above as well. At this time, the etiology for his anemia is largely unknown, but given the presence of a TIPS, the likelihood of an esophageal rupture is unlikely as it would decompress the portal system. Portal hypertensive gastropathy could also contribute to his anemia, but again should be decompressed by the Tips. Current differential could include gastritis, peptic ulcer disease, Dieulafoy lesion, arteriovenous malformation, colitis, or GI neoplasm. At the current time. His H and H have been stable since infusion of PRBCs shortly after admission with no clinical evidence of gastrointestinal bleeding at the current time. RECOMMENDATIONS 1. We would continue to trend H and H and transfuse as necessary to maintain H and H of 05/18. 2. Continue to monitor clinically for signs of active GI bleeding. 3. The patient will need both an upper endoscopy and colonoscopy prior to discharge and will most likely proceed with these on Sunday given improvement in his mental status and able to tolerate a GoLYTELY prep. Cirrhosis: The patient is presenting with a history of cirrhosis per chart review, which is presumably due to chronic hepatitis C infection. It is currently not known whether or not he was actually treated for this infection and may therefore need that in the future. However, with the presence of a TIPS within the liver, it could potentially indicate a history of either severe esophageal varices or even refractory ascites, now with decompression of the portal system. Given his slowed mentation at this time, it is unclear who was following him for his cirrhosis as well, but as the sensorium clears with the lactulose and rifaximin, this information may be more forthcoming. At this time, it seems that his cirrhosis is complicated primarily by hepatic encephalopathy, for which the patient was taking lactulose and rifaximin as an outpatient. RECOMMENDATIONS 1. We would continue the patient on lactulose 15 mL b.i.d. in addition to rifaximin 550 mg b.i.d. for his hepatic encephalopathy. 2. We would attempt to obtain any outside medical records pertaining to his diagnosis of cirrhosis in addition to obtaining more information from the patient once the sensorium clears. We will continue to follow. Please call with any questions. Job ID: [id number]
[2019-06-03] MEDS: Piperacillin/Tazobactam 4.5 GM in Sodium Chloride 0.9% 100 ML IVPB SCH ×4 (03:58→21:08)
[2019-06-03 04:18] LABS: Band 8 % (5-11); Eosinophils 2 % (0-10); Hemoglobin 7.6 g/dL (14.0-18.0); Lymphocytes 12 % (21-51); MDiff Complete? YES; Mean Corpuscular HGB CONC 32.2 g/dL (32.0-36.0); Mean Corpuscular Hemoglobin 28.7 pg (27.0-31.0); Mean Corpuscular Volume 89.2 fL (78.0-98.0); Mean Platelet Volume 7.4 fL (7.4-10.4); Monocytes 2 % (0-10); Neutrophil 76 % (42-75); Platelet Count 122 thou/uL (130-400); RBC Distribution Width 16.3 % (11.5-14.5); Red Blood Cell (RBC) Count 2.65 mill/uL (4.70-6.10); White Blood Cell (WBC) Count 5.1 thou/uL (4.8-10.8)
[2019-06-03 04:27] LABS: Iron 32 ug/dL (65-175); Iron Binding Capacity, Total 306 mcg/dL (261-462)
--- NOTE | 2019-06-03 07:58 | RAD ---
EXAM: CHEST ONE VIEW HISTORY: Follow-up evaluation. Patient on ventilator. COMPARISON: 06/02/2019 FINDINGS: The endotracheal tube and nasogastric tubes have been removed. The left internal jugular vein central venous catheter remains in place and unchanged in position. Pleural and parenchymal changes left lung base are again seen with pleural fluid along the lateral as pect left chest as well as at the left lung apex predominantly medially which may be partially loculated. There is focal area of opacity present at the lateral right lung base which may related to developing pneumonia. There is an increase in perihilar interstitial and alveolar opacities bilaterally which could be related to infectious process or pulmonary edema. Tiny right pleural effus ion is present. Vascular calcifications are seen in the thoracic aorta. Embolization coils overlie the right upper quadrant, and there is evidence of a portosystemic shunt a lso overlying the right upper quadrant. The osseous structures are intact. IMPRESSION: 1. Pleural and parenchymal changes left hemithorax with pleural-based density along the left lung bas e and lateral lower left chest as well as medially extending to the left lung apex, which could be partially loculated. 2. Interval development of a parenchymal opacity lateral right lung base with interstitial and alveol ar opacities seen in the perihilar regions bilaterally. This may be related to either asymmetric pulmonary edema or infectious process. 3. Tiny right pleural effusion.
[2019-06-03] MEDS: Rifaximin 550 MG TAB PO SCH ×2 (10:42→21:09)
[2019-06-03] MEDS ORDERED: Iron, Sodium Ferric Gluconate 250 MG in Sodium Chloride 0.9% 100 ML IVPB SCH (11:00)
[2019-06-03] MEDS: Pantoprazole 80 MG, Admixture Fee 1 EACH in Sodium Chloride 0.9% 100 ML IVP SCH ×2 (13:17→23:19)
[2019-06-03] MEDS ORDERED: Nitroglycerin 50 MG/250 ML BOT 250 ML ONE (14:00)
[2019-06-03] MEDS ORDERED: Propofol 1,000 MG/100 ML VIAL IV ONE (14:20)
[2019-06-03] MEDS ORDERED: Nitroglycerin 50 MG/250 ML BOT 250 ML IVPB SCH (14:30)
--- NOTE | 2019-06-03 14:31 | PDOC.HOSPP ---
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 Evaluation revealed severe anemia with Hb 2.5. Was intubated in the ER on 05/31/2019 for airway protection and was extubated on 06/02/2019. Doing well post extubation. No hx of hematemesis or hematochezia. Has prior hx of TIPS. More conversational today. - Objective Vital Signs & Weight: Vital Signs (12 hours) Temp Pulse Resp Pulse Ox 06/03/19 14:02 118 H 36 H 98 06/03/19 13:54 129 H 06/03/19 12:00 98.4 F 06/03/19 10:30 95 18 932 H 06/03/19 07:41 97 06/03/19 07:00 98.6 F 06/03/19 06:32 92 L 06/03/19 06:30 89 21 H 92 L 06/03/19 02:56 98.7 F Weight Weight 151 lb 0.266 oz Most Recent Monitor Data Heart Rate from ECG 110 NIBP 141/79 NIBP BP-Mean 99 Respiration from ECG 29 SpO2 90 I&O: 06/02/19 06/03/19 06/04/19 06:59 06:59 06:59 Intake Total 1757 1078 520 Output Total 1235 1525 885 Balance 325 -218 -840 Result Diagrams: 06/03/19 03:30 06/02/19 05:10 ROS - Review of Systems All systems: All other ROS were reviewed and found negative. - Medication Medications: Active Medications Generic Name Dose Route Start Last Admin Trade Name Ignacioq PRN Reason Stop Dose Admin Albuterol/Ipratropium 3 ml 06/01/19 14:00 06/03/19 14:02 Duoneb NEB 3 ml [id number] JESSIE Administration Piperacillin Sod/Tazobactam 100 mls @ 200 mls/hr 06/01/19 03:00 06/03/19 14: 02 Sod 4.5 gm/ Sodium Chloride IVPB 100 mls 0300,0900,1500,2100 JESSIE Administration Pantoprazole Sodium 80 mg/ 100 mls @ 10 mls/hr 05/31/19 22:30 06/03/19 13:17 Miscellaneous Medication 1 IVP 100 mls each/ Sodium Chloride INF JESSIE Administration Lactulose 10 gm 06/02/19 09:00 06/03/19 10:42 Lactulose PO 10 gm BID JESSIE Administration Rifaximin 550 mg 06/02/19 21:00 06/03/19 10:42 Xifaxan PO 550 mg BID JESSIE Administration - Exam awake alert Eye: PERRL ENT: normocephalic atraumatic, moist mucosa Neck: supple Heart: RRR, murmur present (soft systolic murmur) Respiratory: no wheezes, no rales, no ronchi (fair air entry bilaterally with some transmitted sound) Gastrointestinal: soft, non-tender, normal bowel sounds (mild distension) Extremities: no cyanosis Neurological: CN's grossly intact, no focal deficits Psychiatric: normal affect (mild confusion. ? related to language), A&O x 3 Hosp A/P (1) Severe anemia Code(s): D64.9 - ANEMIA, UNSPECIFIED Status: Acute (2) Syncope and collapse Code(s): R55 - SYNCOPE AND COLLAPSE Status: Acute (3) Acute encephalopathy Code(s): G93.40 - ENCEPHALOPATHY, UNSPECIFIED Status: Acute (4) GI bleed Code(s): K92.2 - GASTROINTESTINAL HEMORRHAGE, UNSPECIFIED Status: Acute (5) Elevated troponin Code(s): R74.8 - ABNORMAL LEVELS OF OTHER SERUM ENZYMES Status: Acute (6) Coagulopathy Status: Acute (7) Hepatitis C infection Code(s): B19.20 - UNSPECIFIED VIRAL HEPATITIS C WITHOUT HEPATIC COMA Status: Acute (8) Hepatic encephalopathy Code(s): K72.90 - HEPATIC FAILURE, UNSPECIFIED WITHOUT COMA Status: Acute (9) Iron deficiency Code(s): E61.1 - IRON DEFICIENCY Status: Acute - Plan Give IV iron ferrlecit 250 mg x 1. Monitor H/H. Continue PPI, lactulose and xifaximin. GI following.
--- NOTE | 2019-06-03 15:01 | RAD ---
AP CHEST: Date: 06/03/19 HISTORY: Chest pain. COMPARISON: 06/03/19. FINDINGS: Diffuse bilateral infiltrates again noted. More confluent in the left lung base with probable associa nathan effusion. Central line is unchanged. No significant change from 06/03/19 exam performed at 0523 hours. IMPRESSION: Bilateral infiltrates are unchanged from film from earlier today. POS: [facility]
[2019-06-03] MEDS ORDERED: fentaNYL Citrate/PF 2,000 MCG in Sodium Chloride 0.9% 60 ML IV SCH (15:11)
[2019-06-03] MEDS ORDERED: Fentanyl BOLUS 250 ML IVPB PRN (15:11)
[2019-06-03] MEDS ORDERED: Propofol BOLUS 1,000 MG/100 ML VIAL IV PRN (15:11)
[2019-06-03] MEDS ORDERED: Lorazepam 2 MG/ML VIAL SLOW IVP PRN (15:11)
[2019-06-03] MEDS ORDERED: Morphine 2 MG/ML SYRINGE SLOW IVP PRN (15:11)
[2019-06-03] MEDS ORDERED: DISCONTINUE PREVIOUS NARCOTIC PAIN MEDICATIONS AND BENZODIAZEPINES FS SCH (15:11)
[2019-06-03] MEDS ORDERED: SYSTANE 3.5 GM TUBE EA EYE PRN (15:24)
[2019-06-03 15:33] LABS: Base Excess (BEa) -5.9 mEq/L (-2.0 to +3.0); CO2 Tension 29.4 mmHg (35.0-45.0); Calcium, Ionized 1.09 mmol/L (1.12-1.30); Carboxyhemoglobin (COHb) 1.2 gm% (0.0-3.0); Hemoglobin (Hb) 8.7 g/dL (14.0-18.0); O2 Tension (PaO2) 81.4 mmHg (80.0-100.0); Potassium - ABG Lab 3.31 mmol/L (3.70-5.30)
--- NOTE | 2019-06-03 15:42 | PRG ---
DATE OF SERVICE: 06/03/2019 SUBJECTIVE: Mr. Ruelas did well overnight. He is lying flat in bed this morning. OBJECTIVE: VITAL SIGNS: Heart rate was 100, blood pressures in the 90s. HEAD AND NECK: Unremarkable. LUNGS: Remarkable for distant breath sounds at his bases. HEART: Regular rhythm. ABDOMEN: Soft and nontender. EXTREMITIES: Without asymmetry or significant edema. LABORATORY DATA: White count 5.1, hemoglobin 7.6, platelets 122. Sodium 140, potassium 3.6, chloride 110, bicarb 24, BUN 21, creatinine 1.12 yesterday. IMPRESSION AND PLAN: 1. Encephalopathy, resolving. 2. Mixed anemia, probably gastrointestinal blood loss combined with chronic disease. I felt he is a candidate to transfer out of critical care unit. This afternoon, he became suddenly short of breath with chest discomfort. My associate is attending to him at the bedside. It is likely that he will need re-intubation. Apparently, he got hypertensive with his complaints. Start him on nitroglycerin drip. An EKG and chest x-ray have been ordered. Job ID: [id number]
[2019-06-03] MEDS ORDERED: Furosemide 40 MG/4 ML VIAL SLOW IVP SCH (15:45)
[2019-06-03 15:53] LABS: Puncture Site LRA
[2019-06-03] MEDS: Albumin 25% 25 GM/100 ML BOT IVPB SCH ×2 (16:43→23:51)
--- NOTE | 2019-06-03 16:56 | OP ---
DATE OF PROCEDURE: 06/03/2019 SERVICE: Pulmonary Medicine. PROCEDURE PERFORMED: Emergent endotracheal intubation. CONSENT: Procedure was performed emergently secondary to clinical deterioration and respiratory failure. MEDICATIONS USED: Propofol 100 mg IV push. PREOPERATIVE DIAGNOSIS: Acute hypoxic respiratory failure. POSTOPERATIVE DIAGNOSIS: Acute hypoxic respiratory failure. DESCRIPTION OF PROCEDURE: Vital sign monitoring was accomplished by noninvasive hemodynamic monitoring, pulse oximetry, and telemetry. In the supine position, the patient was preoxygenated with BiPAP. He is maintained with saturations of 100%. Following induction of anesthesia, a #3 GlideScope was inserted through the posterior oropharynx offering clear identification of the laryngeal structures with a grade 1 view. An endotracheal tube was visualized passing through the vocal cords. Placement was confirmed by condensation in endotracheal tube, colorimetric capnography, and bi-axillary chest auscultation. The endotracheal tube was secured at 23 cm, measured at the teeth. The patient was placed on mechanical ventilation with good return of volumes. Postprocedure x-ray demonstrated good location for the endotracheal tube within the trachea. ESTIMATED BLOOD LOSS: None though he was coughing up frothy pink-tinged pulmonary edema. COMPLICATIONS: None. Job ID: [id number]
--- NOTE | 2019-06-03 17:38 | RAD ---
PORTABLE SUPINE CHEST; INDICATIONS: Post intubation. COMPARISON: Exam done earlier today at 1:52 p.m. FINDINGS: An ET tube has been placed with the tip just above the aydee. The central line is unchanged. Bilateral infiltrates again noted with left basilar opacification. No change in the lung booker. POS: [facility]
--- NOTE | 2019-06-03 18:58 | EKG ---
Test Reason : Blood Pressure : / mmHG Vent. Rate : 134 BPM Atrial Rate : 134 BPM P-R Int : 142 ms QRS Dur : 078 ms QT Int : 304 ms P-R-T Axes : 064 006 063 degrees QTc Int : 453 ms Sinus tachycardia Abnormal ECG When compared with ECG of 31-MAY-2019 19:08, (Unconfirmed) Nonspecific T wave abnormality no longer evident in Anterior leads Confirmed by GISELLE HERNANDEZ, . S. (4) on 06/03/2019 6:58:33 PM Referred By: JOHN Confirmed By:DR. Kristen DESAI MD
--- NOTE | 2019-06-03 20:05 | PRG ---
DATE OF SERVICE: 06/03/2019 REASON FOR CONSULTATION: Anemia and cirrhosis. SUBJECTIVE: The patient was doing well today with no acute events or problems overnight with the plan to downgrade the patient to a regular miller bed. However, he experienced acute shortness of breath that was not responsive to BiPAP ventilation and was subsequently reintubated. Upon intubation, he was noted to have a large amount of pink frothy fluid obtained from both lungs consistent with flash pulmonary edema. Currently, the patient is intubated but not sedated and doing well on mechanical ventilation. He does describes some chest discomfort and abdominal discomfort, but not reproduced on physical exam. Prior to his re-intubation per nursing staff, he was able to interact effectively with improved clearing of his sensorium. OBJECTIVE: VITAL SIGNS: Temperature 98.5, pulse 85, blood pressure 106/67, respiratory rate 20, saturating 100% on mechanical ventilation. GENERAL: The patient was lying in bed, in no acute distress. Unable to assess sensorium due to his intubation status. CARDIOVASCULAR: Regular rate and rhythm. RESPIRATORY: Coarse breath sounds heard in all lung booker with diminished breath sounds in bilateral lower lung bases. ABDOMEN: Normoactive bowel sounds. Soft. nontender. Mild abdominal distention. EXTREMITIES: No cyanosis, clubbing, or edema. LABORATORY DATA: CBC with a white blood cell count of 5.1, hemoglobin 7.6, hematocrit 23.6, platelets 122. BNP 2257. IMAGING DATA: No current GI imaging is available for review. ASSESSMENT AND PLAN: The patient is a 59-year-old male with past medical history of hypertension, chronic hepatitis C infection (unknown if he has been treated) and cirrhosis complicated by hepatic encephalopathy presenting with significant anemia. 1. Anemia: a. The patient initially presented to the hospital with a profound anemia with a hemoglobin of 2.5 on admission. During the course of this hospitalization, he was adequately resuscitated with fluid and blood product with stabilization of his H and H per labs this morning. During the course of this hospitalization, he has not exhibited any evidence of an active GI bleed with hematemesis, melena, or hematochezia. At this time, the origin of his anemia continues to remain unknown with a possible GI origin and we were planning on doing an EGD and colonoscopy for further evaluation of this particular issue; however, with the sudden flash pulmonary edema, this will need to be held until further stabilization of his respiratory status. 2. Recommendation: a. Would continue to trend his H and H and transfuse as necessary to maintain an H and H of 7/. b. Continue to monitor clinically for signs of active GI bleeding three. c. Would hold on upper endoscopy and colonoscopy for now in light of his respiratory issues. 3. Cirrhosis: a. The patient is presenting with a history of cirrhosis. Per chart review with a TIPS in place on imaging either for refractory ascites or esophageal varices. As such, he was being treated with rifaximin and lactulose as an outpatient for resultant hepatic encephalopathy. Per nursing staff, his mentation had improved this morning as well, indicating some response to treatment for his hepatic encephalopathy, but this cannot be assessed at the current time given his intubated status. However, during the course of the last 24 hours, he has not had any significant bowel movement indicating nonresponse to the lactulose therapy. 4. Recommendations: a. Would increase the lactulose to 30 mL b.i.d. in addition to continuing rifaximin 550 mg b.i.d. for his hepatic encephalopathy. b. Would continue to trend his labs for signs of worsening hepatic function with daily INR and calculation of MELD score. We will continue to follow. Please call with any questions. Job ID: [id number]
[2019-06-04] MEDS: Propofol 1,000 MG/100 ML VIAL IV PRN ×3 (00:11→15:15)
[2019-06-04] MEDS: Piperacillin/Tazobactam 4.5 GM in Sodium Chloride 0.9% 100 ML IVPB SCH ×4 (03:03→20:53)
[2019-06-04 03:58] LABS: INR-International Normal Ratio 1.6; Prothrombin Time 18.7 SEC (12.0-14.7)
[2019-06-04 04:09] LABS: ALT (SGPT) 9 U/L (8-55); AST (SGOT) 25 U/L (5-34); Albumin 2.7 g/dL (3.5-5.0); Alkaline Phosphatase 105 U/L (40-150); Anion Gap 15 mmol/L (10-20); BUN (Urea Nitrogen) 14 mg/dL (8.4-25.7); Bilirubin, Total 2.3 mg/dL (0.2-1.2); Calc. Creatinine Clearance 88 mL/min (70-130); Calcium 8.2 mg/dL (7.8-10.44); Carbon Dioxide 19 mmol/L (22-29); Chloride 109 mmol/L (98-107); Estimated GFR-MDRD 88; Globulin 3.6 g/dL (2.4-3.5); Glucose 102 mg/dL (70-105); Protein, Total 6.3 g/dL (6.0-8.3); Sodium 140 mmol/L (136-145)
[2019-06-04 04:12] LABS: Potassium 2.8 mmol/L (3.5-5.1)
[2019-06-04] MEDS ORDERED: Potassium Chloride 20 MEQ TAB PO SCH (04:30)
[2019-06-04 04:57] LABS: Band 4 % (5-11); Eosinophils 5 % (0-10); Hemoglobin 7.2 g/dL (14.0-18.0); Lymphocytes 9 % (21-51); MDiff Complete? YES; Mean Corpuscular HGB CONC 33.2 g/dL (32.0-36.0); Mean Corpuscular Hemoglobin 29.4 pg (27.0-31.0); Mean Corpuscular Volume 88.5 fL (78.0-98.0); Mean Platelet Volume 7.1 fL (7.4-10.4); Monocytes 9 % (0-10); Neutrophil 72 % (42-75); Nucleated RBC 1 % (0); Platelet Count 102 thou/uL (130-400); Platelet Morphology Comment Appears Decreased; RBC Distribution Width 16.5 % (11.5-14.5); Red Blood Cell (RBC) Count 2.45 mill/uL (4.70-6.10); White Blood Cell (WBC) Count 5.6 thou/uL (4.8-10.8)
[2019-06-04] MEDS: Albumin 25% 25 GM/100 ML BOT IVPB SCH ×3 (05:27→17:40)
--- NOTE | 2019-06-04 08:00 | RAD ---
XR Chest 1 View Portable HISTORY: Respiratory failure COMPARISON: 06/03/2019 FINDINGS: There is mild interval improvement in the aeration of the right lung. Remainder the exam is otherwise stable
[2019-06-04 08:03] LABS: Base Excess (BEa) -2.6 mEq/L (-2.0 to +3.0); Calcium, Ionized 1.09 mmol/L (1.12-1.30); Carboxyhemoglobin (COHb) 1.5 gm% (0.0-3.0); Hemoglobin (Hb) 7.3 g/dL (14.0-18.0); O2 Tension (PaO2) 161.7 mmHg (80.0-100.0); Potassium - ABG Lab 2.92 mmol/L (3.70-5.30); pH, Arterial 7.51 (7.35-7.45)
[2019-06-04 08:07] LABS: Puncture Site rr
[2019-06-04] MEDS: Pantoprazole 80 MG, Admixture Fee 1 EACH in Sodium Chloride 0.9% 100 ML IVP SCH (09:22)
[2019-06-04] MEDS: Rifaximin 550 MG TAB PO SCH ×2 (09:23→20:54)
[2019-06-04] MEDS: Furosemide 20 MG/2 ML VIAL SLOW IVP SCH (09:23)
[2019-06-04] MEDS ORDERED: Furosemide 40 MG/4 ML VIAL IVP ONE (12:05)
[2019-06-04] MEDS ORDERED: Furosemide 100 MG/10 ML VIAL SLOW IVP SCH (12:15)
--- NOTE | 2019-06-04 14:37 | PDOC.HOSPP ---
- Subjective Encounter Date: 06/04/19 Encounter Time: 13:36 Subjective: 59 y/o male, [facility] inmate with Hep C induced liver cirrhosis associated with hepatic encephalopathy brought in a syncope and collapse. Evaluation revealed severe anemia with Hb 2.5. Was intubated in the ER on 05/31/2019 for airway protection and was extubated on 06/02/2019. Did well post extubation initially but later developed respiratory distress due to flash pulm edema and was reintubated on 06/03/2019. No hx of hematemesis or hematochezia. Had prior hx of TIPS. - Objective Vital Signs & Weight: Vital Signs (12 hours) Temp Pulse Resp BP 06/04/19 13:37 70 105/57 L 06/04/19 10:37 71 99/59 L 06/04/19 07:46 72 102/59 L 06/04/19 05:33 21 H 06/04/19 04:00 21 H 06/04/19 03:00 98.6 F Weight Admit Weight 149 lb Weight 150 lb 5.684 oz Most Recent Monitor Data Heart Rate from ECG 70 NIBP 103/57 NIBP BP-Mean 72 Respiration from ECG 16 SpO2 100 I&O: 06/03/19 06/04/19 06/05/19 06:59 06:59 06:59 Intake Total 1078 1708 Output Total 1525 3140 Balance -018 -1046 Result Diagrams: 06/04/19 03:30 06/04/19 03:30 ROS - Medication Medications: Active Medications Generic Name Dose Route Start Last Admin Trade Name Freq PRN Reason Stop Dose Admin Albumin Human 25 gm 06/03/19 18:00 06/04/19 12:51 Albumin 25% IVPB 06/04/19 18:01 25 gm Q6HR JESSIE Administration Albuterol/Ipratropium 3 ml 06/01/19 14:00 06/04/19 13:59 Duoneb NEB 3 ml [id number] JESSIE Administration Furosemide 20 mg 06/04/19 09:00 06/04/19 09:23 Lasix SLOW IVP 06/05/19 09:01 20 mg DAILY JESSIE Administration Piperacillin Sod/Tazobactam 100 mls @ 200 mls/hr 06/01/19 03:00 06/04/19 09: 22 Sod 4.5 gm/ Sodium Chloride IVPB 100 mls 0300,0900,1500,2100 JESSIE Administration Lactulose 10 gm 06/02/19 09:00 06/04/19 09:23 Lactulose PO 10 gm BID JESSIE Administration Propofol 1,000 mg 06/03/19 15:11 06/04/19 09:45 Diprivan IV 07/03/19 15:11 1,000 mg INF PRN Administration TO ACHIEVE GOAL RASS Protocol Rifaximin 550 mg 06/02/19 21:00 06/04/19 09:23 Xifaxan PO 550 mg BID JESSIE Administration - Exam awake alert Eye: anicteric sclera ENT: normocephalic atraumatic ENT - other findings: ET tube in place Neck: supple Heart: RRR Respiratory - other findings: Harsh ventilator transmitted sound Gastrointestinal: soft, non-tender, normal bowel sounds Extremities: no cyanosis, 1+ LE edema Neurological: CN's grossly intact, no focal deficits Hosp A/P (1) Acute respiratory failure with hypoxia Code(s): J96.01 - ACUTE RESPIRATORY FAILURE WITH HYPOXIA Status: Acute (2) Flash pulmonary edema Code(s): J81.0 - ACUTE PULMONARY EDEMA Status: Acute (3) Hypokalemia Code(s): E87.6 - HYPOKALEMIA Status: Acute (4) Severe anemia Code(s): D64.9 - ANEMIA, UNSPECIFIED Status: Acute (5) Syncope and collapse Code(s): R55 - SYNCOPE AND COLLAPSE Status: Acute (6) Acute encephalopathy Code(s): G93.40 - ENCEPHALOPATHY, UNSPECIFIED Status: Acute (7) GI bleed Code(s): K92.2 - GASTROINTESTINAL HEMORRHAGE, UNSPECIFIED Status: Acute (8) Elevated troponin Code(s): R74.8 - ABNORMAL LEVELS OF OTHER SERUM ENZYMES Status: Acute (9) Coagulopathy Status: Acute (10) Hepatitis C infection Code(s): B19.20 - UNSPECIFIED VIRAL HEPATITIS C WITHOUT HEPATIC COMA Status: Acute (11) Hepatic encephalopathy Code(s): K72.90 - HEPATIC FAILURE, UNSPECIFIED WITHOUT COMA Status: Acute (12) Iron deficiency Code(s): E61.1 - IRON DEFICIENCY Status: Acute - Plan Replete serum potasium Continue diuretic, Respiratory care as per Pulm. give additional ferrlecit x 2 continue lactulose and rifaximin. Monitor H/H
[2019-06-04] MEDS ORDERED: Iron, Sodium Ferric Gluconate 250 MG in Sodium Chloride 0.9% 100 ML IVPB SCH (14:45)
--- NOTE | 2019-06-04 15:48 | PRG ---
DATE OF SERVICE: 06/04/2019 SUBJECTIVE: Raffaele Ruelas was evaluated. He is awake. He nods. He follows commands. OBJECTIVE: VITAL SIGNS: Heart rate is 70, blood pressure 105/57, respiratory rate 16 LUNGS: Clear anteriorly. HEART: Regular rhythm. ABDOMEN: Soft and nontender. LABORATORY DATA: White count 5.2, sodium 140, potassium 2.8, chloride 109, bicarb 19. Chest radiograph still shows pulmonary IMPRESSION: 1. . 2. Multifactorial anemia. 3. . 1. Elevated blood pressure. The echocardiogram is pending. Give him more intravenous Lasix today. Tomorrow, . Blood gas today shows pH 7.51 salt-poor albumin. Hopefully it will increase his oncotic pressure. He would probably benefit with at least 1 unit of packed cells today. Critical care time is 35 minutes. Job ID: [id number] MTDD
--- NOTE | 2019-06-04 17:59 | ULT ---
HEPATIC DOPPLER: INDICATIONS: Recent TIPS procedure. Assess for patency. Cirrhosis. FINDINGS: The liver is small in size and echogenic. with an irregular margin, consistent with history. The vis ualized pancreas is unremarkable. The gallbladder is not well evaluated but no evidence of gallstone s identified as imaged. The common duct is normal in caliber at 3 to 4 mm. The spleen is mildly enl arged, measuring 12 to 13 cm. The kidneys were not imaged. Color Doppler with spectral analysis performed on the hepatic vessels. The portal veins, the hepatic veins, the hepatic artery, and the splenic artery and vein all show normal hepatopetal blood flow. IMPRESSION: Normal hepatic Doppler study. POS: [facility]
--- NOTE | 2019-06-04 18:34 | PRG ---
DATE OF SERVICE: 06/04/2019 REASON FOR CONSULTATION: Anemia and cirrhosis. SUBJECTIVE: The patient did well overnight with no acute events or problems. He currently remains intubated. However, he has not been on any sedation medication and has been tolerating mechanical ventilation well. He was able to respond to simple commands and questioning by shaking his head affirmatively or negatively. He does indicate some mild right lower quadrant abdominal pain, but otherwise denies any other problems. OBJECTIVE: VITAL SIGNS: Temperature 98.3, pulse 74, blood pressure 100/56, respiratory rate 16, and saturating 100% on mechanical ventilation. GENERAL: The patient was lying in bed, in no acute distress, unable to truly assess sensorium due to his intubation status. CARDIOVASCULAR: Regular rate and rhythm. RESPIRATORY: Coarse breath sounds auscultated all lung booker, consistent with mechanical ventilation. ABDOMEN: Normoactive bowel sounds. Soft, nontender. Mild abdominal distention. EXTREMITIES: No cyanosis, clubbing, or edema. LABORATORY DATA: CBC with white blood cell count of 5.6, hemoglobin 7.2, hematocrit 21.6, and platelets 102. INR 1.6. Chemistry with a sodium of 140, potassium 2.8, chloride 109, CO2 of 19, BUN 14, creatinine 0.89, glucose 102, AST 25, ALT 9, alkaline phosphatase 105, total bilirubin 2.3, albumin 2.7. Calculated MELD score of 15. IMAGING DATA: Hepatic ultrasound pending at this time for interrogation of the TIPS. ASSESSMENT AND PLAN: The patient is a 59-year-old male with past medical history of hypertension, chronic hepatitis C infection (unknown if he has been treated), and cirrhosis complicated by hepatic encephalopathy, presenting with significant anemia. Anemia. 1. The patient initially presented with profound anemia with a hemoglobin of 2.5 on admission. Over the next 24 hours, he was aggressively resuscitated with PRBCs with stabilization of his H and H. During the course of this hospitalization, he has not exhibited any evidence of overt gastrointestinal bleeding including hematemesis, melena, or hematochezia. At this time, the origin of his initial anemia continues to remain unknown with a possible GI origin, but with the acute onset of flash pulmonary edema, endoscopy is difficult at best. However, the patient is currently stable on mechanical ventilation, which may lend itself toward evaluation while in the ICU. Recommendations: a. We would continue to trend his H and H and transfuse as necessary to maintain an H and H of 7. b. Continue to monitor clinically for signs of active gastrointestinal bleeding. c. We will hold upper endoscopy and colonoscopy for now in light of his respiratory issues, but with stabilization of his status while on mechanical ventilation, we will consider endoscopic evaluation on Sunday. Cirrhosis. 1. The patient is presenting with a history of cirrhosis, presumably due to his chronic hepatitis C infection. As part of treatment for this condition, he does have a transjugular intrahepatic portosystemic shunt in place, which was either for refractory ascites or esophageal varices and decompression of the portal system. As such, it makes the formation of esophageal varices and significant portal hypertensive gastropathy unlikely, especially if the transjugular intrahepatic portosystemic shunt is patent. However, it also does increase his risk for hepatic encephalopathy, for which he had been treated as an outpatient with both rifaximin and lactulose. At this time, he seems to be responding to lactulose and rifaximin administration given his ability to respond to commands, although full examination of sensorium cannot be performed due to his intubated status. Recommendations: a. We would continue lactulose 30 mL b.i.d. in addition to rifaximin 550 b.i.d. for his hepatic encephalopathy. b. I will order a right upper quadrant ultrasound with interrogation of the transjugular intrahepatic portosystemic shunt to evaluate for patency and proper flow through the shunt itself. c. We would continue to trend the labs with LFTs and INR daily for evaluation of worsening hepatic function. We will continue to follow. Please call with any questions. Job ID: [id number]
[2019-06-04] MEDS: Pantoprazole 40 MG VIAL IVP SCH (20:54)
[2019-06-05] MEDS: Propofol 1,000 MG/100 ML VIAL IV PRN ×2 (01:37→23:08)
[2019-06-05] MEDS: Piperacillin/Tazobactam 4.5 GM in Sodium Chloride 0.9% 100 ML IVPB SCH ×4 (02:31→20:44)
[2019-06-05 04:21] LABS: Anisocytosis SLIGHT = 6-15 cells (100X) (0-5/hpf); Band 6 % (5-11); Eosinophils 2 % (0-10); Hemoglobin 7.4 g/dL (14.0-18.0); Lymphocytes 9 % (21-51); MDiff Complete? YES; Mean Corpuscular HGB CONC 33.6 g/dL (32.0-36.0); Mean Corpuscular Hemoglobin 29.6 pg (27.0-31.0); Mean Corpuscular Volume 88.2 fL (78.0-98.0); Mean Platelet Volume 7.2 fL (7.4-10.4); Monocytes 16 % (0-10); Neutrophil 67 % (42-75); Platelet Count 104 thou/uL (130-400); Platelet Morphology Comment Appears Decreased; RBC Distribution Width 17.2 % (11.5-14.5); White Blood Cell (WBC) Count 4.4 thou/uL (4.8-10.8)
[2019-06-05 07:07] LABS: Actual Bicarbonate (HCO3a) 20.3 mEq/L (22-28); Base Excess (BEa) -3.2 mEq/L (-2.0 to +3.0); Calcium, Ionized 1.15 mmol/L (1.12-1.30); Carboxyhemoglobin (COHb) 1.4 gm% (0.0-3.0); Hemoglobin (Hb) 7.8 g/dL (14.0-18.0); O2 Tension (PaO2) 106.6 mmHg (80.0-100.0); Potassium - ABG Lab 3.96 mmol/L (3.70-5.30); pH, Arterial 7.45 (7.35-7.45)
[2019-06-05 07:09] LABS: Puncture Site RR
--- NOTE | 2019-06-05 08:00 | RAD ---
XR Chest 1 View Portable History: Ventilated patient Comparison: Radiograph prior day Findings: Left IJ central venous catheter tip is similar. Endotracheal tube tip is above the aydee 3 .2 cm. Large left and moderate right layering pleural effusions. Cardiac silhouette is similar. The multifocal relatively round lung opacities/masses are similar. Impression: 1. Mild interval size increase bilateral pleural effusions. 2. Interval increased confluence of the relatively round opacity/masses within both lungs suggestive of hemorrhage versus infection. Hemorrhaging masses are felt less likely although follow-up CT chest can be obtained.
[2019-06-05] MEDS: Rifaximin 550 MG TAB PO SCH ×2 (08:24→20:45)
[2019-06-05] MEDS: Furosemide 20 MG/2 ML VIAL SLOW IVP SCH (08:24)
[2019-06-05] MEDS: Sodium Chloride 0.9% (PF) 10 ML VIAL FS PRN (08:27)
[2019-06-05] MEDS: Pantoprazole 40 MG VIAL IVP SCH ×2 (08:27→20:45)
[2019-06-05] MEDS ORDERED: Furosemide 40 MG/4 ML VIAL SLOW IVP SCH (09:45)
--- NOTE | 2019-06-05 13:58 | PRG ---
DATE OF SERVICE: 06/05/2019 SUBJECTIVE: Raffaele Ruelas remains mechanically ventilated. He will awake and move all his extremities. OBJECTIVE: VITAL SIGNS: Blood pressure 106/59, heart rate 76, respiratory rate 19, and oximetry is 100%. LUNGS: Clear. HEART: Regular rhythm. ABDOMEN: Soft and nontender. LABORATORY DATA: White count 4.4, hemoglobin 7.4, and platelets 104,000. Sodium 140, potassium 3.8, chloride 109, bicarb 19, BUN 14, and creatinine 0.9. IMPRESSION: 1. Respiratory failure. 2. Diastolic dysfunction. 3. Pulmonary edema or left pleural effusion secondary to chronic liver disease. 4. Cirrhosis. 5. Anemia of chronic disease likely mixed with blood loss anemia. 6. Mild thrombocytopenia. PLAN: Continue supportive care. We will continue to diurese him. Intake and output for last 24 hours was negative 35 to 40. If he is in negative fluid balance again tomorrow and his radiographs slightly improved, we may consider weaning and extubation. Job ID: [id number]
[2019-06-05 14:19] LABS: Anion Gap 14 mmol/L (10-20); BUN (Urea Nitrogen) 12 mg/dL (8.4-25.7); Calc. Creatinine Clearance 83 mL/min (70-130); Calcium 8.6 mg/dL (7.8-10.44); Carbon Dioxide 22 mmol/L (22-29); Chloride 110 mmol/L (98-107); Estimated GFR-MDRD 82; Glucose 78 mg/dL (70-105); Potassium 3.9 mmol/L (3.5-5.1); Sodium 142 mmol/L (136-145)
--- NOTE | 2019-06-05 15:36 | PDOC.HOSPP ---
- Subjective Encounter Date: 06/05/19 Encounter Time: 15:34 Subjective: 59 y/o male, [facility] inmate with Hep C induced liver cirrhosis associated with hepatic encephalopathy brought in a syncope and collapse. Evaluation revealed severe anemia with Hb 2.5. Was intubated in the ER on 05/31/2019 for airway protection and was extubated on 06/02/2019. Did well post extubation initially but later developed respiratory distress due to flash pulm edema and was reintubated on 06/03/2019. No hx of hematemesis or hematochezia. Had prior hx of TIPS. For Endoscopic evaluation by GI tomorrow - Objective Vital Signs & Weight: Vital Signs (12 hours) Temp Pulse Resp BP Pulse Ox 06/05/19 14:15 75 110/63 06/05/19 14:00 19 06/05/19 12:00 98.1 F 19 06/05/19 10:27 79 108/62 06/05/19 10:00 16 06/05/19 08:00 98.2 F 16 100 06/05/19 07:31 72 116/69 06/05/19 06:00 100 06/05/19 05:49 16 06/05/19 03:45 16 Weight Admit Weight 149 lb Weight 151 lb 14.376 oz Most Recent Monitor Data Heart Rate from ECG 72 NIBP 115/66 NIBP BP-Mean 82 Respiration from ECG 36 SpO2 100 I&O: 06/04/19 06/05/19 06/06/19 06:59 06:59 06:59 Intake Total 1708 1075 Output Total 7853 6087 6311 Balance -4136 -7428 -6138 Result Diagrams: 06/05/19 03:30 06/05/19 03:30 ROS - Medication Medications: Active Medications Generic Name Dose Route Start Last Admin Trade Name Freq PRN Reason Stop Dose Admin Albuterol/Ipratropium 3 ml 06/01/19 14:00 06/05/19 14:15 Duoneb NEB 3 ml [id number] JESSIE Administration Piperacillin Sod/Tazobactam 100 mls @ 200 mls/hr 06/01/19 03:00 06/05/19 08: 27 Sod 4.5 gm/ Sodium Chloride IVPB 100 mls 0300,0900,1500,2100 JESSIE Administration Lactulose 10 gm 06/02/19 09:00 06/05/19 08:24 Lactulose PO 10 gm BID JESSIE Administration Pantoprazole Sodium 40 mg 06/04/19 21:00 06/05/19 08:27 Protonix IVP 40 mg Q12HR JESSIE Administration Propofol 1,000 mg 06/03/19 15:11 06/05/19 01:37 Diprivan IV 07/03/19 15:11 1,000 mg INF PRN Administration TO ACHIEVE GOAL RASS Protocol Rifaximin 550 mg 06/02/19 21:00 06/05/19 08:24 Xifaxan PO 550 mg BID JESSIE Administration Sodium Chloride 10 ml 06/04/19 13:46 06/05/19 08:27 Normal Saline Pf FS 10 ml PRN PRN Administration RECONSTITUTION - Exam General - other findings: awake Eye: anicteric sclera ENT: normocephalic atraumatic, moist mucosa ENT - other findings: ET tube and NG tubes in place Neck: no JVD Heart: RRR Respiratory: no ronchi Respiratory - other findings: harsh ventilator transmitted breath sound heard in all lung zones Gastrointestinal: soft, non-tender, non-distended, normal bowel sounds Extremities: no edema Neurological: CN's grossly intact, no focal deficits Hosp A/P (1) Acute respiratory failure with hypoxia Code(s): J96.01 - ACUTE RESPIRATORY FAILURE WITH HYPOXIA Status: Acute (2) Flash pulmonary edema Code(s): J81.0 - ACUTE PULMONARY EDEMA Status: Acute (3) Hypokalemia Code(s): E87.6 - HYPOKALEMIA Status: Acute (4) Severe anemia Code(s): D64.9 - ANEMIA, UNSPECIFIED Status: Acute (5) Syncope and collapse Code(s): R55 - SYNCOPE AND COLLAPSE Status: Acute (6) Acute encephalopathy Code(s): G93.40 - ENCEPHALOPATHY, UNSPECIFIED Status: Acute (7) GI bleed Code(s): K92.2 - GASTROINTESTINAL HEMORRHAGE, UNSPECIFIED Status: Acute (8) Elevated troponin Code(s): R74.8 - ABNORMAL LEVELS OF OTHER SERUM ENZYMES Status: Acute (9) Coagulopathy Status: Acute (10) Hepatitis C infection Code(s): B19.20 - UNSPECIFIED VIRAL HEPATITIS C WITHOUT HEPATIC COMA Status: Acute (11) Hepatic encephalopathy Code(s): K72.90 - HEPATIC FAILURE, UNSPECIFIED WITHOUT COMA Status: Acute (12) Iron deficiency Code(s): E61.1 - IRON DEFICIENCY Status: Acute - Plan Monitor electrolytes and replete as needed Continue diuretic, Respiratory care as per Pulm. continue lactulose and rifaximin. For Upper and lower endoscopy tomorrow for anemia evaluation. Monitor H/H
[2019-06-05] MEDS ORDERED: GoLYTELY 4,000 ml Bottle PO SCH (17:00)
--- NOTE | 2019-06-05 20:59 | PRG ---
DATE OF SERVICE: 06/05/2019 REASON FOR CONSULTATION: Anemia and cirrhosis. SUBJECTIVE: The patient did well overnight with no acute events or problems. He does remain intubated, but has been on minimal sedation over the course of the day and able to tolerate mechanical ventilation without difficulty. During the course of my interview with him, he was able to respond affirmatively negative by shaking his head as well as hand gestures. Currently, states that he has abdominal tenderness in all abdominal quadrants, but denies any other problems. Per nursing staff, there has been no evidence of bloody output from the OG tube despite clearing with saline wash. OBJECTIVE: VITAL SIGNS: Temperature 98.6, pulse 71, blood pressure 117/68, respiratory rate 15, saturating 100% on room air. GENERAL: The patient was lying in bed, in no acute distress. Unable to assess sensorium due to his intubation status. However, he was able to follow simple commands and conversation. CARDIOVASCULAR: Regular rate and rhythm. RESPIRATORY: Coarse breath sounds auscultated in all lung booker consistent with mechanical ventilation. ABDOMEN: Normoactive bowel sounds. Soft. Mild abdominal distention. Mild tenderness to palpation in all abdominal quadrants. EXTREMITIES: No cyanosis, clubbing, or edema. LABORATORY DATA: CBC with a white blood cell count of 4.4, hemoglobin 7.4, hematocrit 22, platelets 104. Chemistry with a sodium of 142, potassium 3.9, chloride 110, CO2 of 22, BUN 12, creatinine 0.94, glucose 78. IMAGING DATA: Chest x-ray obtained on June 05, 2019, showed the left IJ central venous catheter tip in similar position when compared to previous endotracheal tube was in appropriate position. However, there was mild interval increase in the size of the bilateral pleural effusions as well as interval increase of the relatively round opacity/masses within both lungs suggestive of hemorrhage versus infection. ASSESSMENT AND PLAN: The patient is a 59-year-old male with past medical history of hypertension, chronic hepatitis C infection (unknown if he has been treated), and cirrhosis complicated by hepatic encephalopathy presenting with significant anemia. Anemia: 1. The patient initially presented with profound anemia with loss of consciousness as an outpatient while in nursing home in assisted. He was aggressively resuscitated with PRBCs with stabilization of his H and H and has not had any further evidence of gastrointestinal bleeding during the course of this hospitalization. At this time, the origin of his initial anemia remains unknown, but a gastrointestinal origin cannot be ruled out at this time. The patient is currently stable on mechanical ventilation, which may lead itself toward evaluation with both esophagogastroduodenoscopy and colonoscopy tomorrow while on mechanical ventilation. Recommendations: 1. Would continue to trend his H and H and transfuse as necessary to maintain an H and H of 7 and 21. 2. Continue to monitor clinically for signs of active GI bleeding. 3. We will start the patient on GoLYTELY prep today with plans for EGD and colonoscopy tomorrow for evaluation of the GI tract for possible anemia source. We would prefer to perform this in the ICU while on mechanical ventilation given his recent history of flash pulmonary edema. Cirrhosis: 1. The patient is presenting with a history of cirrhosis presumably due to his chronic hepatitis C infection. Upon questioning the patient today, it appears that he may have had a history of bleeding esophageal varices, which necessitated the placement of a TIPS within the liver to decompress the portal system. With the TIPS in place, it does increase his risk for hepatic encephalopathy for which it appeared he had been also taking rifaximin and lactulose as an outpatient. At this time with lactulose and rifaximin administration, his ability to interact seems good and once extubated, we may be able to further evaluate his sensorium and/or response to treatment. Recommendations: 1. Would continue lactulose 30 mL b.i.d. in addition to rifaximin 550 mg b.i.d. for his hepatic encephalopathy. 2. Would continue to trend labs with daily LFTs and INR for monitoring of hepatic function. We will continue to follow. Please call with any questions. Job ID: [id number]
[2019-06-06] MEDS: Piperacillin/Tazobactam 4.5 GM in Sodium Chloride 0.9% 100 ML IVPB SCH ×4 (02:47→20:05)
[2019-06-06 04:24] LABS: INR-International Normal Ratio 1.5; Prothrombin Time 17.7 SEC (12.0-14.7)
[2019-06-06 04:31] LABS: Band 2 % (5-11); Eosinophils 4 % (0-10); Hemoglobin 8.3 g/dL (14.0-18.0); Hypochromia SLIGHT = 6-15 cells (100X) (0-5/hpf); Lymphocytes 13 % (21-51); MDiff Complete? YES; Mean Corpuscular HGB CONC 33.3 g/dL (32.0-36.0); Mean Corpuscular Hemoglobin 29.8 pg (27.0-31.0); Mean Corpuscular Volume 89.4 fL (78.0-98.0); Mean Platelet Volume 6.9 fL (7.4-10.4); Monocytes 5 % (0-10); Neutrophil 76 % (42-75); Platelet Count 111 thou/uL (130-400); Platelet Morphology Comment Appears Decreased; RBC Distribution Width 17.2 % (11.5-14.5); Red Blood Cell (RBC) Count 2.79 mill/uL (4.70-6.10); White Blood Cell (WBC) Count 4.6 thou/uL (4.8-10.8)
[2019-06-06 04:38] LABS: ALT (SGPT) 9 U/L (8-55); AST (SGOT) 20 U/L (5-34); Albumin 3.1 g/dL (3.5-5.0); Alkaline Phosphatase 81 U/L (40-150); Anion Gap 18 mmol/L (10-20); BUN (Urea Nitrogen) 10 mg/dL (8.4-25.7); Bilirubin, Total 2.4 mg/dL (0.2-1.2); Calc. Creatinine Clearance 83 mL/min (70-130); Calcium 8.7 mg/dL (7.8-10.44); Carbon Dioxide 25 mmol/L (22-29); Chloride 103 mmol/L (98-107); Estimated GFR-MDRD 81; Globulin 3.6 g/dL (2.4-3.5); Glucose 79 mg/dL (70-105); Potassium 3.3 mmol/L (3.5-5.1); Protein, Total 6.7 g/dL (6.0-8.3); Sodium 143 mmol/L (136-145)
[2019-06-06] MEDS: Propofol 1,000 MG/100 ML VIAL IV PRN ×4 (04:58→20:08)
[2019-06-06 07:28] LABS: Actual Bicarbonate (HCO3a) 24.2 mEq/L (22-28); Base Excess (BEa) 0.6 mEq/L (-2.0 to +3.0); CO2 Tension 34.2 mmHg (35.0-45.0); Calcium, Ionized 1.12 mmol/L (1.12-1.30); Carboxyhemoglobin (COHb) 1.2 gm% (0.0-3.0); Hemoglobin (Hb) 8.7 g/dL (14.0-18.0); O2 Tension (PaO2) 73.7 mmHg (80.0-100.0); Potassium - ABG Lab 3.56 mmol/L (3.70-5.30); pH, Arterial 7.47 (7.35-7.45)
[2019-06-06 07:29] LABS: Puncture Site LB
[2019-06-06] MEDS: Pantoprazole 40 MG VIAL IVP SCH ×2 (08:38→20:08)
--- NOTE | 2019-06-06 08:39 | RAD ---
CHEST 1 VIEW: Date: 06/06/19 HISTORY: Dyspnea. Follow-up. COMPARISON: 06/05/19. FINDINGS: Cardiac silhouette is magnified by projection. Pulmonary vasculature remains engorged with widespread patchy areas of infiltrate throughout each lung, similar in appearance to the prior study. Left pleu ral fluid is again demonstrated. Mediastinum is midline. Tip of the endotracheal catheter now approac hes the aydee and right mainstem bronchus. Other lines and tubes are unchanged in position. alarm security or surveillance monitor leads overlie the chest. IMPRESSION: 1. Endotracheal catheter tip now approaches the aydee. Consider pulling back approximately 2-3 cm. 2. Left pleural fluid, bilateral infiltrates, and other findings are otherwise stable. POS: BUCK
[2019-06-06] MEDS ORDERED: GoLYTELY 4,000 ml Bottle PO SCH (08:45)
[2019-06-06] MEDS ORDERED: Furosemide 40 MG/4 ML VIAL SLOW IVP SCH (09:00)
--- NOTE | 2019-06-06 09:54 | PRG ---
DATE OF SERVICE: 06/06/2019 SUBJECTIVE: Mr. Ruelas is on the endoscopy schedule today. He awakens. OBJECTIVE: VITAL SIGNS: Respiratory rate is 17, minute volume is 7 to 8 L a minute, blood pressure is 117/72, heart rate is 83. Respiratory rate is per mechanical ventilation. Intake and outputs negative 3260. LUNGS: Clear anteriorly. HEART: Regular rhythm. ABDOMEN: Soft and nontender. EXTREMITIES: Without edema. IMPRESSION: 1. Bilateral pulmonary infiltrates, likely pulmonary edema, less likely pneumonia. 2. Respiratory failure requiring a re-intubation several days back. 3. Cirrhosis with low oncotic pressure. 4. Hepatic encephalopathy on admission. 5. Severe anemia on admission with a hemoglobin of just over 2 g. PLAN: 1. Endoscopy. 2. Weaning over the weekend, if he continues to improve . 3. We will continue with attempts to diurese him at least a couple of liters every day. Critical care time is 35 minutes. Job ID: [id number] MTDD
[2019-06-06] MEDS: Rifaximin 550 MG TAB PO SCH ×2 (13:12→20:05)
[2019-06-06] MEDS: Furosemide 40 MG/4 ML VIAL SLOW IVP SCH (13:12)
--- NOTE | 2019-06-06 13:35 | OP ---
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 PROCEDURES PERFORMED: 1. Esophagogastroduodenoscopy, diagnostic. 2. Colonoscopy with biopsies. INDICATION: Severe iron deficiency anemia on presentation, with no overt gastrointestinal bleeding during this hospitalization. Evidently, the patient has a history of portal hypertension and TIPS placement in the past. MEDICATIONS: See Anesthesia record. FINDINGS: After discussion of the risks, benefits, and alternatives of the procedure, informed consent was obtained and verified. Pre-endoscopic cardiopulmonary examination was satisfactory. Time-out was performed before sedation was achieved. Sedation was achieved with Anesthesia assistance at the bedside in the intensive care unit. The patient was already endotracheally intubated. He was placed in left lateral decubitus position. A Pentax adult upper endoscope was placed into the oropharynx and passed through the cricopharyngeus under direct visualization. The esophageal mucosa appeared normal throughout. There was no evidence of any esophageal varices. The endoscope was advanced into the stomach. Forward and retroflexed views of the entire gastric mucosa were obtained. There was no evidence of any old blood or active bleeding in the stomach. There was no evidence of any gastric varices. In the gastric antrum, there was an area with multiple small and punctate arterial venous malformations, consistent with gastric antral vascular ectasias. There was no spontaneous bleeding from this area, though there was some minimal contact oozing as the endoscope passed over this area. No endoscopic therapy was applied. There was some nasogastric suction trauma in the antrum and body as well, nonbleeding. The endoscope was advanced through the pylorus and into the first and second portions of the duodenum, which appeared unremarkable. The upper endoscope was completely withdrawn. Digital rectal exam was performed, which was unremarkable. A Pentax adult colonoscope was inserted into the anus and passed forward to the cecum in the usual fashion. The cecal base was identified by the appendiceal orifice as well as the ileocecal valve. The terminal ileum was not intubated. The colonoscope was slowly withdrawn in a gradual and circumferential manner with careful examination of the entire colonic mucosa. The quality of the prep was adequate. There was an extensive amount of liquid stool, but with extensive irrigation and suctioning, an adequate examination was obtained. At 60 cm from the anal verge, which I estimated to be in the around the level of the splenic flexure, there was a single shallow ulceration measuring about 2 cm in diameter. This was clean based and nonbleeding. The edges were slightly raised. Overall, it had the appearance of probable ischemic ulcer, though there were no other ulcerations noted or any other mucosal abnormalities in the area. I did obtain biopsies from the ulcer edge to rule out malignancy. The remainder of the colonoscopy was normal. Retroflexion in the rectum demonstrated some internal hemorrhoids. The colonoscope was completely withdrawn and the patient allowed to recover. The patient tolerated the procedure well. There were no immediate postprocedure complications. IMPRESSION: 1. Multiple tiny and punctate arteriovenous malformations in the gastric antrum, consistent with gastric antral vascular ectasia, with minimal contact oozing. No endoscopic therapy applied. 2. Otherwise normal EGD. 3. No evidence of esophageal or gastric varices. 4. 2 cm shallow clean based ulcer around the area of the splenic flexure at 60 cm in the colon, appearing is likely ischemic. Ulcer edge biopsied to rule out malignancy. 5. Otherwise normal colonoscopy to the cecum. RECOMMENDATIONS: 1. Daily PPI. 2. Iron supplementation and transfusion as needed. 3. Follow up pathology on the colon ulcer. Nothing further plan from a GI standpoint at this time. Please call back anytime if needed. Dr. Herman is covering for GI this weekend. Job ID: [id number]
--- NOTE | 2019-06-06 14:11 | PDOC.HOSPP ---
- Subjective Encounter Date: 06/06/19 Encounter Time: 11:09 Subjective: 59 y/o male, long term inmate with Hep C induced liver cirrhosis associated with hepatic encephalopathy brought in a syncope and collapse. Evaluation revealed severe anemia with Hb 2.5. Was intubated in the ER on 05/31/2019 for airway protection and was extubated on 06/02/2019. Did well post extubation initially but later developed respiratory distress due to flash pulm edema and was reintubated on 06/03/2019. No hx of hematemesis or hematochezia. Had prior hx of TIPS. For GI Endoscopic evaluation today. Stiill intubated. - Objective Vital Signs & Weight: Vital Signs (12 hours) Temp Pulse Resp BP 06/06/19 12:00 97.5 F L 12 06/06/19 11:11 74 122/72 06/06/19 10:00 13 06/06/19 08:00 97.9 F 17 06/06/19 07:16 73 129/84 06/06/19 06:00 16 06/06/19 04:00 17 06/06/19 02:25 71 Weight Admit Weight 149 lb Weight 150 lb 2.157 oz Most Recent Monitor Data Heart Rate from ECG 58 NIBP 121/68 NIBP BP-Mean 85 Respiration from ECG 15 SpO2 100 I&O: 06/05/19 06/06/19 06/07/19 06:59 06:59 06:59 Intake Total 1075 1515 Output Total 4615 4775 630 Balance -3540 -3260 -630 Result Diagrams: 06/06/19 03:55 06/06/19 03:55 ROS - Medication Medications: Active Medications Generic Name Dose Route Start Last Admin Trade Name Freq PRN Reason Stop Dose Admin Albuterol/Ipratropium 3 ml 06/01/19 14:00 06/06/19 11:11 Duoneb NEB 3 ml [id number] JESSIE Administration Furosemide 60 mg 06/06/19 09:00 06/06/19 13:12 Lasix SLOW IVP 60 mg DAILY JESSIE Administration Piperacillin Sod/Tazobactam 100 mls @ 200 mls/hr 06/01/19 03:00 06/06/19 08: 38 Sod 4.5 gm/ Sodium Chloride IVPB 100 mls 0300,0900,1500,2100 JESSIE Administration Fentanyl Citrate 2,000 mcg/ 100 mls @ 0 mls/hr 06/03/19 15:11 06/06/19 09:49 Sodium Chloride IV 07/03/19 15:11 100 mls INF JESSIE Administration Protocol Per Protocol Lactulose 10 gm 06/02/19 09:00 06/06/19 13:12 Lactulose PO 10 gm BID JESSIE Administration Pantoprazole Sodium 40 mg 06/04/19 21:00 06/06/19 08:38 Protonix IVP 40 mg Q12HR JESSIE Administration Potassium Chloride 40 meq 06/06/19 10:00 06/06/19 13:12 Klor-Con PER TUBE 06/06/19 16:01 40 meq Q6H JESSIE Administration Propofol 1,000 mg 06/03/19 15:11 06/06/19 08:44 Diprivan IV 07/03/19 15:11 1,000 mg INF PRN Administration TO ACHIEVE GOAL RASS Protocol Rifaximin 550 mg 06/02/19 21:00 06/06/19 13:12 Xifaxan PO 550 mg BID JESSIE Administration Sodium Chloride 10 ml 06/04/19 13:46 06/05/19 08:27 Normal Saline Pf FS 10 ml PRN PRN Administration RECONSTITUTION - Exam General - other findings: Sedated Eye: anicteric sclera ENT: normocephalic atraumatic ENT - other findings: ET and NG tubes in place Heart: RRR Respiratory: no ronchi Respiratory - other findings: Fair ventilator transmitted breath sound in both lung booker Gastrointestinal: soft, normal bowel sounds Gastrointestinal - other findings: mildly distended Extremities: no cyanosis, no edema Neurological - other findings: Sedated and unresponsive Hosp A/P (1) Acute respiratory failure with hypoxia Code(s): J96.01 - ACUTE RESPIRATORY FAILURE WITH HYPOXIA Status: Acute (2) Flash pulmonary edema Code(s): J81.0 - ACUTE PULMONARY EDEMA Status: Acute (3) Hypokalemia Code(s): E87.6 - HYPOKALEMIA Status: Acute (4) Severe anemia Code(s): D64.9 - ANEMIA, UNSPECIFIED Status: Acute (5) Syncope and collapse Code(s): R55 - SYNCOPE AND COLLAPSE Status: Acute (6) Acute encephalopathy Code(s): G93.40 - ENCEPHALOPATHY, UNSPECIFIED Status: Acute (7) GI bleed Code(s): K92.2 - GASTROINTESTINAL HEMORRHAGE, UNSPECIFIED Status: Acute (8) Elevated troponin Code(s): R74.8 - ABNORMAL LEVELS OF OTHER SERUM ENZYMES Status: Acute (9) Coagulopathy Status: Acute (10) Hepatitis C infection Code(s): B19.20 - UNSPECIFIED VIRAL HEPATITIS C WITHOUT HEPATIC COMA Status: Acute (11) Hepatic encephalopathy Code(s): K72.90 - HEPATIC FAILURE, UNSPECIFIED WITHOUT COMA Status: Acute (12) Iron deficiency Code(s): E61.1 - IRON DEFICIENCY Status: Acute - Plan Replete serum potassium with KCL. Respiratory care as per Pulm. continue lactulose and rifaximin. For Upper and lower endoscopy today. Get CBC, CMP and magnesium in the am.
[2019-06-07] MEDS: Piperacillin/Tazobactam 4.5 GM in Sodium Chloride 0.9% 100 ML IVPB SCH ×4 (03:19→21:34)
[2019-06-07 04:30] LABS: Hemoglobin 8.9 g/dL (14.0-18.0); Mean Corpuscular HGB CONC 32.7 g/dL (32.0-36.0); Mean Corpuscular Hemoglobin 29.8 pg (27.0-31.0); Mean Platelet Volume 7.3 fL (7.4-10.4); Platelet Count 123 thou/uL (130-400); RBC Distribution Width 17.9 % (11.5-14.5); White Blood Cell (WBC) Count 5.9 thou/uL (4.8-10.8)
[2019-06-07 04:31] LABS: Band 11 % (5-11); Eosinophils 1 % (0-10); Lymphocytes 14 % (21-51); MDiff Complete? YES; Monocytes 8 % (0-10); Neutrophil 66 % (42-75); Platelet Morphology Comment Appears Adequate
[2019-06-07 07:07] LABS: Actual Bicarbonate (HCO3a) 21.2 mEq/L (22-28); Base Excess (BEa) -2.9 mEq/L (-2.0 to +3.0); CO2 Tension 33.9 mmHg (35.0-45.0); Calcium, Ionized 1.16 mmol/L (1.12-1.30); Carboxyhemoglobin (COHb) 1.4 gm% (0.0-3.0); Hemoglobin (Hb) 9.3 g/dL (14.0-18.0); O2 Tension (PaO2) 140.1 mmHg (80.0-100.0); Potassium - ABG Lab 4.02 mmol/L (3.70-5.30); pH, Arterial 7.41 (7.35-7.45)
[2019-06-07 07:09] LABS: Puncture Site LRA
[2019-06-07 07:10] LABS: ALV-art Gradient 102.725 (0-20)
--- NOTE | 2019-06-07 07:56 | RAD ---
EXAM: Single view of the chest HISTORY: Ventilated patient with respiratory failure COMPARISON: None FINDINGS: Single view of the chest shows a normal sized cardiomediastinal silhouette. The lines and tubes are unchanged in position. There is a moderate left pleural effusion. There may be subtle bilateral lower lobe infiltrates. IMPRESSION: Stable exam
[2019-06-07] MEDS: Furosemide 40 MG/4 ML VIAL SLOW IVP SCH (08:01)
[2019-06-07] MEDS: Pantoprazole 40 MG VIAL IVP SCH ×2 (08:02→21:33)
[2019-06-07] MEDS: Rifaximin 550 MG TAB PO SCH ×2 (08:02→21:33)
[2019-06-07] MEDS: Sodium Chloride 0.9% (PF) 10 ML VIAL FS PRN (08:02)
--- NOTE | 2019-06-07 09:35 | PRG ---
DATE OF SERVICE: 06/07/2019 TIME SPENT: 35 minutes of critical care time. SUBJECTIVE: This patient is resting comfortably on mechanical ventilation. He will wake up and follow commands appropriately. PHYSICAL EXAMINATION: VITAL SIGNS: Temperature 99.2, pulse 72, blood pressure 104/56, and O2 saturation 100%. Intake for 24 hours 2383, output 3565. HEENT: Unremarkable. NECK: No adenopathy, JVD, or bruits. LUNGS: Fairly clear anteriorly. CARDIAC: S1 and S2, regular without audible murmur. ABDOMEN: Soft and nontender. EXTREMITIES: No clubbing, cyanosis, or edema. LABORATORY DATA: White blood cell count 5.9, hemoglobin 8.9, hematocrit 27.3, and platelet count 123. PH of 7.41, pCO2 of 33, pO2 of 140 on SIMV rate 14, tidal volume 500, PEEP 5, pressure support 10, and FiO2 of 40%. Sodium 143, potassium 3.3, chloride 103, CO2 of 25, BUN 10, creatinine 0.9, and glucose 81. ASSESSMENT: 1. Pulmonary edema. 2. Respiratory failure, requiring mechanical ventilation and one re-intubation. 3. Cirrhosis. 4. Hepatic encephalopathy. 5. Severe anemia at the time of admission. 6. Multiple arteriovenous malformations in the gastric antrum and an ulcer around the splenic flexure by esophagogastroduodenoscopy and colonoscopy yesterday. PLAN: I think we can proceed with weaning and extubation. I will review the orders and consolidate as needed. Job ID: [id number]
[2019-06-07] MEDS: Iron, Sodium Ferric Gluconate 250 MG in Sodium Chloride 0.9% 100 ML IVPB SCH (09:38)
--- NOTE | 2019-06-07 14:53 | PDOC.HOSPP ---
- Subjective Encounter Date: 06/07/19 Encounter Time: 11:59 Subjective: 59 y/o male, group home inmate with Hep C induced liver cirrhosis associated with hepatic encephalopathy brought in a syncope and collapse. Evaluation revealed severe anemia with Hb 2.5. Was intubated in the ER on 05/31/2019 for airway protection and was extubated on 06/02/2019. Did well post extubation initially but later developed respiratory distress due to flash pulm edema and was reintubated on 06/03/2019. Had upper and lower endoscopy on 06/06/2010 for severe iron deficiency anemia. Respiratory has improved and he was extubated aerlier today. Complains of hunger. No fever, nausea, vomiting or abdominal pain. - Objective Vital Signs & Weight: Vital Signs (12 hours) Temp Pulse Resp BP Pulse Ox 06/07/19 12:00 97.7 F 98 06/07/19 11:14 77 18 99 06/07/19 09:28 88 18 99 06/07/19 08:00 98.5 F 13 100 06/07/19 06:59 70 104/56 L 06/07/19 06:58 75 14 99 06/07/19 06:00 16 06/07/19 04:00 99.2 F 06/07/19 03:44 18 Weight Admit Weight 149 lb Weight 138 lb 7.205 oz Most Recent Monitor Data Heart Rate from ECG 77 NIBP 104/64 NIBP BP-Mean 77 Respiration from ECG 17 SpO2 100 I&O: 06/06/19 06/07/19 06/08/19 06:59 06:59 06:59 Intake Total 1515 2383.3 545 Output Total 6975 3565 1665 Balance -3260 -1181.7 -1120 Result Diagrams: 06/07/19 03:15 06/06/19 03:55 ROS - Medication Medications: Active Medications Generic Name Dose Route Start Last Admin Trade Name Freq PRN Reason Stop Dose Admin Albuterol/Ipratropium 3 ml 06/01/19 14:00 06/07/19 11:14 Duoneb NEB 3 ml [id number] JESSIE Administration Furosemide 60 mg 06/06/19 09:00 06/07/19 08:01 Lasix SLOW IVP 60 mg DAILY JESSIE Administration Piperacillin Sod/Tazobactam 100 mls @ 200 mls/hr 06/01/19 03:00 08/10/19 08: 02 Sod 4.5 gm/ Sodium Chloride IVPB 100 mls 0300,0900,1500,2100 JESSIE Administration Fentanyl Citrate 2,000 mcg/ 100 mls @ 0 mls/hr 06/03/19 15:11 06/06/19 09:49 Sodium Chloride IV 07/03/19 15:11 100 mls INF JESSIE Administration Protocol Per Protocol Ferric Sodium Gluconate 120 mls @ 60 mls/hr 06/07/19 09:00 06/07/19 09:38 Complex 250 mg/ Sodium IVPB 06/08/19 09:01 120 mls Chloride DAILY JESSIE Administration Lactulose 10 gm 06/02/19 09:00 06/07/19 08:01 Lactulose PO 10 gm BID JESSIE Administration Pantoprazole Sodium 40 mg 06/04/19 21:00 06/07/19 08:02 Protonix IVP 40 mg Q12HR JESSIE Administration Propofol 1,000 mg 06/03/19 15:11 06/06/19 20:08 Diprivan IV 07/03/19 15:11 1,000 mg INF PRN Administration TO ACHIEVE GOAL RASS Protocol Rifaximin 550 mg 06/02/19 21:00 06/07/19 08:02 Xifaxan PO 550 mg BID JESSIE Administration Sodium Chloride 10 ml 06/04/19 13:46 06/07/19 08:02 Normal Saline Pf FS 10 ml PRN PRN Administration RECONSTITUTION - Exam awake alert Eye: anicteric sclera ENT: normocephalic atraumatic, moist mucosa Neck: supple, symmetric Heart: RRR Respiratory: no rales, no ronchi Respiratory - other findings: Fair air entry bilaterally Gastrointestinal: soft, non-tender, non-distended, normal bowel sounds Extremities: no cyanosis, no edema Neurological: CN's grossly intact, no focal deficits Psychiatric: normal affect, A&O x 3 Hosp A/P (1) Acute respiratory failure with hypoxia Code(s): J96.01 - ACUTE RESPIRATORY FAILURE WITH HYPOXIA Status: Acute (2) Flash pulmonary edema Code(s): J81.0 - ACUTE PULMONARY EDEMA Status: Acute (3) Hypokalemia Code(s): E87.6 - HYPOKALEMIA Status: Acute (4) Severe anemia Code(s): D64.9 - ANEMIA, UNSPECIFIED Status: Acute (5) Syncope and collapse Code(s): R55 - SYNCOPE AND COLLAPSE Status: Acute (6) Acute encephalopathy Code(s): G93.40 - ENCEPHALOPATHY, UNSPECIFIED Status: Acute (7) GI bleed Code(s): K92.2 - GASTROINTESTINAL HEMORRHAGE, UNSPECIFIED Status: Acute (8) Elevated troponin Code(s): R74.8 - ABNORMAL LEVELS OF OTHER SERUM ENZYMES Status: Acute (9) Coagulopathy Status: Acute (10) Hepatitis C infection Code(s): B19.20 - UNSPECIFIED VIRAL HEPATITIS C WITHOUT HEPATIC COMA Status: Acute (11) Hepatic encephalopathy Code(s): K72.90 - HEPATIC FAILURE, UNSPECIFIED WITHOUT COMA Status: Acute (12) Iron deficiency Code(s): E61.1 - IRON DEFICIENCY Status: Acute (13) Colon ulcer Code(s): K63.3 - ULCER OF INTESTINE Status: Acute (14) Gastric antral vascular ectasia Code(s): K31.819 - ANGIODYSPLASIA OF STOMACH AND DUODENUM WITHOUT BLEEDING Status: Acute - Plan Replete serum potassium with KCL. Start IV iron therapy Respiratory care as per Pulm. continue lactulose and rifaximin. Start clear liquid diet Continue PPI Get CBC, CMP and magnesium in the am.
[2019-06-08] MEDS: Piperacillin/Tazobactam 4.5 GM in Sodium Chloride 0.9% 100 ML IVPB SCH ×4 (03:16→22:01)
[2019-06-08 03:43] LABS: Band 3 % (5-11); Eosinophils 4 % (0-10); Hypochromia SLIGHT = 6-15 cells (100X) (0-5/hpf); Lymphocytes 9 % (21-51); MDiff Complete? YES; Mean Corpuscular HGB CONC 31.9 g/dL (32.0-36.0); Mean Corpuscular Hemoglobin 29.1 pg (27.0-31.0); Mean Corpuscular Volume 91.3 fL (78.0-98.0); Mean Platelet Volume 6.5 fL (7.4-10.4); Monocytes 6 % (0-10); Neutrophil 78 % (42-75); Platelet Count 116 thou/uL (130-400); Platelet Morphology Comment Appears Decreased; RBC Distribution Width 18.5 % (11.5-14.5); Red Blood Cell (RBC) Count 3.09 mill/uL (4.70-6.10); White Blood Cell (WBC) Count 5.7 thou/uL (4.8-10.8)
[2019-06-08 03:48] LABS: Anion Gap 15 mmol/L (10-20); BUN (Urea Nitrogen) 14 mg/dL (8.4-25.7); Calc. Creatinine Clearance 57 mL/min (70-130); Calcium 9.2 mg/dL (7.8-10.44); Carbon Dioxide 25 mmol/L (22-29); Chloride 105 mmol/L (98-107); Estimated GFR-MDRD 59; Glucose 93 mg/dL (70-105); Potassium 3.9 mmol/L (3.5-5.1); Sodium 141 mmol/L (136-145)
--- NOTE | 2019-06-08 08:20 | RAD ---
PORTABLE AP CHEST XRAY: HISTORY: Patient on ventilator. Daily followup evaluation. COMPARISON: 12/08/2018. FINDINGS: The endotracheal tube and nasogastric tubes have been removed. Left internal jugular vein central ve nous catheter remains in place. Cardiac silhouette is magnified by projection. Pulmonary vasculatur e is borderline increased. Patchy parenchymal and alveolar opacities seen at the right lung base and in the left mid lung zone. There is pleural fluid seen in the lateral left lung base which could pa rtially be loculated. No other interval change. There are embolization coils overlying the region o f the dome of the liver with a portal systemic shunt seen overlying the right upper quadrant. IMPRESSION: 1. Pneumonia versus aspiration pneumonitis at the right lung base with questionable mild patchy dens ity in the left mid lung zone which may also be related to pneumonia. Continued followup to resolutio n is recommended. 2. Left pleural effusion. 3. Interval removal of endotracheal tube and nasogastric tube. 4. Borderline pulmonary vascular congestion. POS: ATIF
[2019-06-08] MEDS: Furosemide 20 MG TAB PO SCH (08:21)
[2019-06-08] MEDS: Rifaximin 550 MG TAB PO SCH ×2 (08:21→20:53)
[2019-06-08] MEDS: Spironolactone 25 MG TAB PO SCH (08:21)
--- NOTE | 2019-06-08 08:31 | PRG ---
DATE OF SERVICE: 06/08/2019 SUBJECTIVE: Mr. Ruelas is doing well. He was extubated yesterday. He had no problems overnight. OBJECTIVE: VITAL SIGNS: His temperature is 98.6, pulse 81, blood pressure 102/64, and O2 saturation 96%. HEENT: Unremarkable. NECK: Left IJ central line in place. CARDIAC: S1 and S2. Regular. LUNGS: Clear. ABDOMEN: Soft and nontender. EXTREMITIES: No edema. LABORATORY DATA: White blood cell count 5.7, hematocrit 28.2, and platelet count 116. Sodium 141, potassium 3.9, BUN 14, creatinine 1.2, and glucose 93. Chest x-ray shows no acute changes. ASSESSMENT: 1. Status post respiratory failure, requiring mechanical ventilation. 2. Cirrhosis. 3. Hepatic encephalopathy, which is improved. 4. Arteriovenous malformations in the gastric antrum. PLAN: Transfer to floor. Discontinue central line. Increase activity as tolerated. No further Pulmonary recommendations at this time. Job ID: [id number]
[2019-06-08] MEDS: Iron, Sodium Ferric Gluconate 250 MG in Sodium Chloride 0.9% 100 ML IVPB SCH (09:51)
--- NOTE | 2019-06-08 14:31 | PDOC.HOSPP ---
- Subjective Encounter Date: 06/08/19 Encounter Time: 11:29 Subjective: 59 y/o male, [facility] inmate with Hep C induced liver cirrhosis associated with hepatic encephalopathy brought in a syncope and collapse. Evaluation revealed severe anemia with Hb 2.5. Was intubated in the ER on 05/31/2019 for airway protection and was extubated on 06/02/2019. Did well post extubation initially but later developed respiratory distress due to flash pulm edema and was reintubated on 06/03/2019. Had upper and lower endoscopy on 06/06/2010 for severe iron deficiency anemia. Respiratory function has improved and he was extubated again on 06/07/2019. No new problem. denied fever, nausea, vomiting or abdominal pain. - Objective Vital Signs & Weight: Vital Signs (12 hours) Temp Pulse Resp Pulse Ox 06/08/19 14:22 94 20 99 06/08/19 10:56 84 15 98 06/08/19 08:00 98.6 F 96 06/08/19 07:05 99 06/08/19 07:03 81 14 99 06/08/19 03:00 98.6 F Weight Admit Weight 149 lb Weight 131 lb 6.328 oz Most Recent Monitor Data Heart Rate from ECG 101 NIBP 121/91 NIBP BP-Mean 101 Respiration from ECG 36 SpO2 94 I&O: 06/07/19 06/08/19 06/09/19 06:59 06:59 06:59 Intake Total 2383.3 1837 820 Output Total 3565 2560 70 Balance -1181.7 -723 750 Result Diagrams: 06/08/19 03:15 06/08/19 03:15 ROS - Medication Medications: Active Medications Generic Name Dose Route Start Last Admin Trade Name Freq PRN Reason Stop Dose Admin Albuterol/Ipratropium 3 ml 06/01/19 14:00 06/08/19 14:22 Duoneb NEB 3 ml [id number] JESSIE Administration Furosemide 20 mg 06/08/19 09:00 06/08/19 08:21 Lasix PO 20 mg DAILY JESSIE Administration Piperacillin Sod/Tazobactam 100 mls @ 200 mls/hr 06/01/19 03:00 06/08/19 08: 27 Sod 4.5 gm/ Sodium Chloride IVPB 100 mls 0300,0900,1500,2100 JESSIE Administration Lactulose 10 gm 06/02/19 09:00 06/08/19 08:21 Lactulose PO 10 gm BID JESSIE Administration Pantoprazole Sodium 40 mg 06/08/19 09:00 06/08/19 08:21 Protonix PO 40 mg BID JESSIE Administration Rifaximin 550 mg 06/02/19 21:00 06/08/19 08:21 Xifaxan PO 550 mg BID JESSIE Administration Sodium Chloride 10 ml 06/04/19 13:46 06/07/19 08:02 Normal Saline Pf FS 10 ml PRN PRN Administration RECONSTITUTION Spironolactone 50 mg 06/08/19 08:00 06/08/19 08:21 Aldactone PO 50 mg QAM-WM JESSIE Administration - Exam awake alert Eye: anicteric sclera ENT: normocephalic atraumatic Neck: supple Heart: RRR Respiratory - other findings: Decreased air movement left hemithorax with some transmitted sound Gastrointestinal: soft, non-tender, normal bowel sounds Extremities: no cyanosis, no edema Neurological: CN's grossly intact, no focal deficits Psychiatric: normal affect, A&O x 3 Hosp A/P (1) Acute respiratory failure with hypoxia Code(s): J96.01 - ACUTE RESPIRATORY FAILURE WITH HYPOXIA Status: Acute (2) Flash pulmonary edema Code(s): J81.0 - ACUTE PULMONARY EDEMA Status: Acute (3) Hypokalemia Code(s): E87.6 - HYPOKALEMIA Status: Acute (4) Severe anemia Code(s): D64.9 - ANEMIA, UNSPECIFIED Status: Acute (5) Syncope and collapse Code(s): R55 - SYNCOPE AND COLLAPSE Status: Acute (6) Acute encephalopathy Code(s): G93.40 - ENCEPHALOPATHY, UNSPECIFIED Status: Acute (7) GI bleed Code(s): K92.2 - GASTROINTESTINAL HEMORRHAGE, UNSPECIFIED Status: Acute (8) Elevated troponin Code(s): R74.8 - ABNORMAL LEVELS OF OTHER SERUM ENZYMES Status: Acute (9) Coagulopathy Status: Acute (10) Hepatitis C infection Code(s): B19.20 - UNSPECIFIED VIRAL HEPATITIS C WITHOUT HEPATIC COMA Status: Acute (11) Hepatic encephalopathy Code(s): K72.90 - HEPATIC FAILURE, UNSPECIFIED WITHOUT COMA Status: Acute (12) Iron deficiency Code(s): E61.1 - IRON DEFICIENCY Status: Acute (13) Colon ulcer Code(s): K63.3 - ULCER OF INTESTINE Status: Acute (14) Gastric antral vascular ectasia Code(s): K31.819 - ANGIODYSPLASIA OF STOMACH AND DUODENUM WITHOUT BLEEDING Status: Acute (15) LIZZETTE (acute kidney injury) Code(s): N17.9 - ACUTE KIDNEY FAILURE, UNSPECIFIED Status: Acute (16) Pleural effusion on left Code(s): J90 - PLEURAL EFFUSION, NOT ELSEWHERE CLASSIFIED Status: Acute - Plan De escalate diuretic given acute increase in creat.DC IV lasix and start oral lasix 20 and spironolactone 50 daily Add levaquin to zosyn for atypical coverage given left lung infiltrate and effusion Continue IV iron therapy Respiratory care as per Pulm. continue lactulose and rifaximin Continue PPI Advance diet as tolerated. Monitor renal function and H/H.
[2019-06-09] MEDS: Piperacillin/Tazobactam 4.5 GM in Sodium Chloride 0.9% 100 ML IVPB SCH ×4 (04:25→20:25)
[2019-06-09 05:16] LABS: #Eosinphils 0.4 thou/uL (0.0-0.7); #Lymphocytes 0.9 thou/uL (1.20-3.40); #Monocytes 0.7 thou/uL (0.11-0.59); #Neutrophils 3.4 thou/uL (1.40-6.50); %Basophils 0.6 % (0.0-1.0); %Eosinophils 6.8 % (0.0-10.0); %Lymphocytes 16.8 % (21.0-51.0); %Monocytes 12.6 % (0.0-10.0); %Neutrophils 63.2 % (42.0-75.0); Hemoglobin 9.5 g/dL (14.0-18.0); Mean Corpuscular HGB CONC 32.4 g/dL (32.0-36.0); Mean Corpuscular Hemoglobin 29.1 pg (27.0-31.0); Mean Corpuscular Volume 89.6 fL (78.0-98.0); Platelet Count 140 thou/uL (130-400); RBC Distribution Width 18.2 % (11.5-14.5); Red Blood Cell (RBC) Count 3.27 mill/uL (4.70-6.10); White Blood Cell (WBC) Count 5.3 thou/uL (4.8-10.8)
[2019-06-09 05:33] LABS: ALT (SGPT) 10 U/L (8-55); AST (SGOT) 31 U/L (5-34); Alkaline Phosphatase 81 U/L (40-150); Anion Gap 15 mmol/L (10-20); BUN (Urea Nitrogen) 10 mg/dL (8.4-25.7); Bilirubin, Total 1.9 mg/dL (0.2-1.2); Calc. Creatinine Clearance 61 mL/min (70-130); Calcium 8.8 mg/dL (7.8-10.44); Carbon Dioxide 23 mmol/L (22-29); Chloride 104 mmol/L (98-107); Estimated GFR-MDRD 68; Globulin 4.5 g/dL (2.4-3.5); Glucose 112 mg/dL (70-105); Potassium 3.7 mmol/L (3.5-5.1); Protein, Total 7.5 g/dL (6.0-8.3); Sodium 138 mmol/L (136-145)
--- NOTE | 2019-06-09 08:02 | PRG ---
DATE OF SERVICE: 06/09/2019 SUBJECTIVE: The patient is in the ICU awaiting a bed out on the floor. There have been no acute changes in his condition overnight. Apparently, he had some bleeding around his Rajput earlier today. OBJECTIVE: VITAL SIGNS: Temperature is 99.2, pulse 89, blood pressure 120/68. Intake for 24 hours 1837, output 2516. HEENT: Unremarkable. NECK: No JVD. CHEST: Clear to auscultation anteriorly. CARDIAC: S1, S2. Regular. ABDOMEN: Soft, nontender. LABORATORY DATA: White blood cell count 5.3, hematocrit 29.3, and platelet count 140. Sodium 138, potassium 3.7, BUN , creatinine 1.1, glucose 112, total bilirubin 1.9. ASSESSMENT: 1. Status post respiratory failure, requiring mechanical ventilation. 2. Cirrhosis. 3. Hepatic encephalopathy-improved. 4. Arteriovenous malformation in gastric antrum. PLAN: Again, awaiting for bed out on the floor. No other recommendations at this time. Would anticipate discharge soon. Job ID: [id number]
[2019-06-09] MEDS: Rifaximin 550 MG TAB PO SCH ×2 (08:34→20:26)
[2019-06-09] MEDS: Furosemide 20 MG TAB PO SCH (08:35)
[2019-06-09] MEDS: Spironolactone 25 MG TAB PO SCH (08:35)
[2019-06-09] MEDS: Carvedilol 6.25 MG TAB PO SCH ×2 (10:09→20:25)
[2019-06-09 13:58] VITALS: BMI 22.6
--- NOTE | 2019-06-09 15:49 | PDOC.HOSPP ---
- Subjective Encounter Date: 06/09/19 Encounter Time: 12:47 Subjective: 59 y/o male, group home inmate with Hep C induced liver cirrhosis associated with hepatic encephalopathy brought in a syncope and collapse. Evaluation revealed severe anemia with Hb 2.5. Was intubated in the ER on 05/31/2019 for airway protection and was extubated on 06/02/2019. Did well post extubation initially but later developed respiratory distress due to flash pulm edema and was reintubated on 06/03/2019. Had upper and lower endoscopy on 06/06/2010 for severe iron deficiency anemia which showed grastric AVM's. Respiratory function has improved and he was extubated again on 06/07/2019. No new problem. Complains of R inguinal area. No fever, nausea, vomiting. - Objective Vital Signs & Weight: Vital Signs (12 hours) Temp Pulse Resp BP Pulse Ox 06/09/19 12:00 98.8 F 06/09/19 11:24 78 15 06/09/19 10:09 141/77 H 06/09/19 08:00 98 20 99 06/09/19 07:44 96 06/09/19 07:40 98.8 F 06/09/19 04:00 99.2 F Weight Admit Weight 149 lb Weight 132 lb 0.91 oz Most Recent Monitor Data Heart Rate from ECG 93 NIBP 136/83 NIBP BP-Mean 100 Respiration from ECG 26 SpO2 97 I&O: 06/08/19 06/09/19 06/10/19 06:59 06:59 06:59 Intake Total 1837 1650 450 Output Total 2560 920 350 Balance -723 730 100 Result Diagrams: 06/09/19 04:52 06/09/19 04:52 ROS - Medication Medications: Active Medications Generic Name Dose Route Start Last Admin Trade Name Freq PRN Reason Stop Dose Admin Acetaminophen 650 mg 05/31/19 22:07 06/09/19 06:35 Tylenol PO 650 mg Q4H PRN Administration Headache/Fever/Mild Pain (1-3) Albuterol/Ipratropium 3 ml 06/01/19 14:00 06/09/19 11:24 Duoneb NEB 3 ml [id number] JESSIE Administration Carvedilol 6.25 mg 06/09/19 09:00 06/09/19 10:09 Coreg PO 6.25 mg BID JESSIE Administration Furosemide 20 mg 06/08/19 09:00 06/09/19 08:35 Lasix PO 20 mg DAILY JESSIE Administration Piperacillin Sod/Tazobactam 100 mls @ 200 mls/hr 06/01/19 03:00 06/09/19 14: 46 Sod 4.5 gm/ Sodium Chloride IVPB 100 mls 0300,0900,1500,2100 JESSIE Administration Lactulose 10 gm 06/02/19 09:00 06/09/19 08:35 Lactulose PO 10 gm BID JESSIE Administration Levofloxacin 750 mg 06/09/19 06:00 06/09/19 06:33 Levaquin PO 750 mg 0600 JESSIE Administration Pantoprazole Sodium 40 mg 06/08/19 09:00 06/09/19 08:34 Protonix PO 40 mg BID JESSIE Administration Rifaximin 550 mg 06/02/19 21:00 06/09/19 08:34 Xifaxan PO 550 mg BID JESSIE Administration Sodium Chloride 10 ml 06/04/19 13:46 06/07/19 08:02 Normal Saline Pf FS 10 ml PRN PRN Administration RECONSTITUTION Spironolactone 50 mg 06/08/19 08:00 06/09/19 08:35 Aldactone PO 50 mg QAM-WM JESSIE Administration - Exam awake alert Eye: anicteric sclera ENT: normocephalic atraumatic, moist mucosa Neck: supple, symmetric Heart: RRR Respiratory: no rales, no ronchi Respiratory - other findings: decrease air entry left hemithorax Gastrointestinal: soft, non-distended, normal bowel sounds Gastrointestinal - other findings: Large R inguinoscrotal hernia noted. partially reducible Extremities: no cyanosis, no edema Neurological: CN's grossly intact, no focal deficits Psychiatric: normal affect, A&O x 3 Hosp A/P (1) Acute respiratory failure with hypoxia Code(s): J96.01 - ACUTE RESPIRATORY FAILURE WITH HYPOXIA Status: Acute (2) Flash pulmonary edema Code(s): J81.0 - ACUTE PULMONARY EDEMA Status: Acute (3) Hypokalemia Code(s): E87.6 - HYPOKALEMIA Status: Acute (4) Severe anemia Code(s): D64.9 - ANEMIA, UNSPECIFIED Status: Acute (5) Syncope and collapse Code(s): R55 - SYNCOPE AND COLLAPSE Status: Acute (6) Acute encephalopathy Code(s): G93.40 - ENCEPHALOPATHY, UNSPECIFIED Status: Acute (7) GI bleed Code(s): K92.2 - GASTROINTESTINAL HEMORRHAGE, UNSPECIFIED Status: Acute (8) Elevated troponin Code(s): R74.8 - ABNORMAL LEVELS OF OTHER SERUM ENZYMES Status: Acute (9) Coagulopathy Status: Acute (10) Hepatitis C infection Code(s): B19.20 - UNSPECIFIED VIRAL HEPATITIS C WITHOUT HEPATIC COMA Status: Acute (11) Hepatic encephalopathy Code(s): K72.90 - HEPATIC FAILURE, UNSPECIFIED WITHOUT COMA Status: Acute (12) Iron deficiency Code(s): E61.1 - IRON DEFICIENCY Status: Acute (13) Colon ulcer Code(s): K63.3 - ULCER OF INTESTINE Status: Acute (14) Gastric antral vascular ectasia Code(s): K31.819 - ANGIODYSPLASIA OF STOMACH AND DUODENUM WITHOUT BLEEDING Status: Acute (15) LIZZETTE (acute kidney injury) Code(s): N17.9 - ACUTE KIDNEY FAILURE, UNSPECIFIED Status: Acute (16) Pleural effusion on left Code(s): J90 - PLEURAL EFFUSION, NOT ELSEWHERE CLASSIFIED Status: Acute (17) Hernia of abdominal wall Status: Acute - Plan Start low dose coreg Continue oral lasix 20 and spironolactone 50 daily Continue levaquin to zosyn given left lung infiltrate and effusion Continue IV iron therapy Respiratory care as per Pulm. continue lactulose and rifaximin Continue PPI Advance diet as tolerated. Monitor renal function and H/H. Consult Gen surgery Transfer patient to Med/surg floor.
[2019-06-10] MEDS: Piperacillin/Tazobactam 4.5 GM in Sodium Chloride 0.9% 100 ML IVPB SCH ×3 (05:04→15:16)
[2019-06-10 05:21] LABS: #Eosinphils 0.4 thou/uL (0.0-0.7); #Lymphocytes 1.1 thou/uL (1.20-3.40); #Monocytes 0.7 thou/uL (0.11-0.59); #Neutrophils 3.3 thou/uL (1.40-6.50); %Basophils 0.6 % (0.0-1.0); %Lymphocytes 19.2 % (21.0-51.0); %Monocytes 13.3 % (0.0-10.0); %Neutrophils 59.9 % (42.0-75.0); Hemoglobin 10.1 g/dL (14.0-18.0); Mean Corpuscular HGB CONC 32.9 g/dL (32.0-36.0); Mean Corpuscular Hemoglobin 29.9 pg (27.0-31.0); Mean Platelet Volume 6.9 fL (7.4-10.4); Platelet Count 144 thou/uL (130-400); RBC Distribution Width 18.1 % (11.5-14.5); Red Blood Cell (RBC) Count 3.39 mill/uL (4.70-6.10); White Blood Cell (WBC) Count 5.5 thou/uL (4.8-10.8)
[2019-06-10 05:41] LABS: Anion Gap 16 mmol/L (10-20); BUN (Urea Nitrogen) 11 mg/dL (8.4-25.7); Calc. Creatinine Clearance 62 mL/min (70-130); Calcium 9.5 mg/dL (7.8-10.44); Carbon Dioxide 20 mmol/L (22-29); Chloride 108 mmol/L (98-107); Estimated GFR-MDRD 69; Glucose 109 mg/dL (70-105); Potassium 3.7 mmol/L (3.5-5.1); Sodium 140 mmol/L (136-145)
[2019-06-10] MEDS: Spironolactone 25 MG TAB PO SCH (08:48)
[2019-06-10] MEDS: Rifaximin 550 MG TAB PO SCH (08:48)
[2019-06-10] MEDS: Carvedilol 6.25 MG TAB PO SCH (08:48)
[2019-06-10] MEDS: Furosemide 20 MG TAB PO SCH (08:48)
--- NOTE | 2019-06-10 12:50 | CON ---
DATE OF CONSULTATION: 06/10/2019 CHIEF COMPLAINT: Right inguinal hernia. HISTORY OF PRESENT ILLNESS: This is a 59-year-old male, who presents with a history of cirrhosis, who has had previous TIPS procedure. I have been consulted by the hospitalist for his right inguinal hernia. He was admitted for anemia and encephalopathy. The patient notes a history of a bulge in his right groin for some time. He notes mild pain. Denies history of incarceration or strangulation. He has a history of hep C cirrhosis and history of encephalopathy secondary to that. He has had previous upper GI bleeds. He has had a TIPS procedure, unsure whether he has had ascites drained. The right inguinal hernia is asymptomatic at this time. PAST MEDICAL HISTORY: Includes hypertension, encephalopathy, hep C cirrhosis. PAST SURGICAL HISTORY: TIPS procedure. MEDICATIONS: Duloxetine, lactulose, midodrine, omeprazole, Osmolite, Xifaxan. ALLERGIES: NO KNOWN DRUG ALLERGIES. SOCIAL HISTORY: Currently incarcerated. No current smoking or alcohol. REVIEW OF SYSTEMS: Otherwise negative unless described above. He denies family history of GI malignancy or anesthetic-related complication. PHYSICAL EXAMINATION: VITAL SIGNS: Blood pressure 110/62, pulse 75, respirations 16. HEENT: Sclerae anicteric. Oropharynx clear. NECK: No lymphadenopathy. CHEST: Clear. HEART: Regular rate. ABDOMEN: Soft, nontender. No obvious ascites. : Examination of his groins reveals a reducible right inguinal hernia. Bilateral testicles descended without mass. LABORATORY DATA: White blood cell count is 5, hemoglobin is 10, platelet count is 144. INR is 1.5. Bilirubin is 1.9, albumin is 3.0. IMAGING STUDIES: CT scan on admission showed the right inguinal hernia. ASSESSMENT: Reducible and asymptomatic right inguinal hernia in the setting of cirrhosis with history of TIPS procedure, encephalopathy, and gastrointestinal bleed. PLAN: There would be no further plans for surgery at this time given that the hernia is reducible. He would be high risk for any surgical procedure given his underlying cirrhosis. He is safe to be discharged and can be followed up closely, if he has any increasing pain or inability to reduce this hernia. Job ID: [id number]
--- NOTE | 2019-06-10 15:49 | PRG ---
DATE OF SERVICE: 06/10/2019 SUBJECTIVE: Mr. Ruelas has no complaints. OBJECTIVE: VITAL SIGNS: He is afebrile, heart rate 16, 02 96% on room air, blood pressure 110/62. LUNGS: Clear. HEART: Regular . ABDOMEN: Soft. LABORATORY STUDIES: White count 5.5, hemoglobin 10.1, hematocrit 30.8, platelets 144,000. Electrolytes are unremarkable. IMPRESSION: 1. . 2. Cirrhosis. 3. Hypertension. 4. History of hepatic encephalopathy . Job ID: [id number]
[2019-06-10 16:11] VITALS: BP 125/75; TEMP 98
--- NOTE | 2019-06-11 02:10 | DIS ---
DATE OF ADMISSION: 05/31/2019 DATE OF DISCHARGE: 06/10/2019 DIAGNOSES AT THE TIME ADMISSION: 1. Anemia. 2. Respiratory failure. 3. Gastrointestinal bleed. FINAL DIAGNOSES: 1. Severe anemia, status post gastrointestinal blood loss. 2. Syncope and collapse, secondary to gastrointestinal bleeding. 3. Acute encephalopathy. 4. Acute gastrointestinal bleeding. 5. Coagulopathy. 6. Hepatitis C infection. 7. Right groin non-incarcerated inguinal hernia. 8. Iron deficiency. 9. History of portal hypertension. 10. Liver cirrhosis. 11. History of tips placement in the past. 12. Most likely ischemic ulceration of the colon located in the area of splenic flexure at 60 cm, status post biopsy to rule out malignancy. Results are pending. CONSULTANTS: 1. Enmanuel Abdul MD, Pulmonary/Critical Care. 2. Leonid Lowe MD, GI. 3. Kevin Cano MD, Pulmonary/Critical Care. 4. Lev Soares MD, Pulmonary/Critical Care. 5. Ranjeet Alva MD, General Surgery. HOSPITAL COURSE: The patient is a 59-year-old inmate, who was admitted to the hospital after he had an episode while he was taking shower. The patient got sick and basically had collapsed and passed out. He got intubated for airway protection and while in the emergency room being evaluated, he was found to have hemoglobin of 2.5. He did not have any history of bleeding. He was transfused with 2 units of packed red blood cells. While in the emergency room, he was evaluated and his white cell count was 8, platelet 168. After 2 units of PRBCs, his hemoglobin was up to 5.4, his INR was 1.6, PT 18.6, and APTT was 34.2. Blood gases showed pH of 7.33 with pCO2 of 38, PO2 of 157, creatinine was 1.37. Lactic acid 6.2, magnesium 3.2. Normal liver function test. Ammonia was 71. Troponin I 0.058. TSH was 5.0. Urinalysis was done and it was negative for infection. Toxicology was negative. The second EKG showed sinus tachycardia with rate of 106 with IA of 158, QRS 86, QT corrected 507. No specific ST and T-wave abnormalities were present. The brain CT showed marked atrophy, but no other significant acute abnormalities. CT angiogram was done and showed old calcified plaques and changes bilateral, but no evidence of hemodynamically significant stenosis within the neck. No evidence for major branch occlusion or any aneurysm. There was bilateral pleural effusion with bilateral pulmonary parenchymal changes concerning for asymmetric edema and pneumonia. Chest x-ray showed bilateral pleural effusion, bilateral vascular congestion, and patchy bilateral interstitial alveolar opacity changes and evidence for asymmetric bilateral edema versus patchy bilateral pneumonia. The patient got admitted today and sent to intensive care unit. He was intubated, but not because of the respiratory failure. This was more for airway protection. He was transfused with 4 units of packed red blood cells. Systems Design Engineer was consulted. He was on Protonix. He was given fresh frozen plasma to reverse anticoagulation. His hemoglobin improved to 8.4. Next day, he got extubated and did relatively well. Next day, his respiratory status got worse and he had to be reintubated. It was noticed on the followup chest x-ray that he had pulmonary edema. An echocardiogram was done, which showed diastolic dysfunction and somewhat increased pressure in the right side of the heart. He was treated with possible infectious etiology process in his lungs. He finished a course of antibiotics, but I am not really sure that he had some infectious etiology process in his lungs. He underwent EGDs by Dr. Escobar and colonoscopy with biopsies. There was multiple tiny and punctuate arteriovenous malformations in the gastric antrum consistent with gastric antral vascular ectasia with minimal contact, oozing, and no endoscopic therapy was applied. Otherwise, EGD was normal. There was no evidence of esophageal or gastric varices. On colonoscopy, there was 2 cm shallow clean based ulcer around the area of the splenic flexure at 60 cm in the colon appearing as likely ischemic. Ulcer edge biopsied to rule out malignancy. Otherwise, colonoscopy was within normal limits up to this. Systems Design Engineer recommended to continue his PPI and iron supplementation and transfusion as needed, and follow up on the pathology of the colon ulcer. The patient was extubated and his post extubation time was uneventful. He was on Lasix and spironolactone. Also, he was placed on Coreg. All those three medications were introduced to his regimen since there was some evidence of diastolic dysfunction on echocardiogram. Finally, the patient was seen by Dr. Alva of General Surgery evaluation for his right groin inguinal hernia, which was not incarcerated. Since he had tips in the past and history of liver cirrhosis, he would be a high risk candidate for any surgery, so he did not recommend any surgical intervention at least at this point. PHYSICAL EXAMINATION: GENERAL: The patient is doing well. VITAL SIGNS: His blood pressure is 125/75, pulse is 68, temperature is 98, respirations 19, O2 saturation 96% on room air. LUNGS: Clear. HEART: S1, S2 normal. ABDOMEN: Soft, nontender, mildly distended. EXTREMITIES: No clubbing, cyanosis, or edema. DISCHARGE MEDICATIONS: He is discharged back to [facility] with recommendation to take, 1. Carvedilol 6.25 mg twice a day. 2. Ferrous sulfate 142 mg once a day. 3. Furosemide 20 mg once a day. 4. Pantoprazole 40 mg twice a day. 5. Spironolactone 50 mg every morning. 6. He will continue on his rifaximin 200 mg twice a day, lactulose 60 mg q.i.d., duloxetine 30 mg once a day. FOLLOWUP: He will follow up with his primary care physician or any provider in [facility] in a week and he will need to follow up with Dr. Lowe in a couple of weeks after the discharge. He will learn about the pathology report on his biopsies of the colonoscopy. TIME SPENT: The time spent on this discharge is more than 30 minutes. Job ID: [id number]
== END 2019-06-10 17:44 | DRG 441 ==
LOC: EEVIPCON 18:44 → ERS 18:44 → CCU 22:00
PROVIDERS: ADMIT Hospitalist; ATTEND Hospitalist
PROC: 30233N1 Transfusion of Nonautologous Red Blood Cells into Peripheral Vein, Percutaneous Approach (ICD-10-PCS; principal; 2019-05-31)
PROC: 0BH17EZ Insertion of Endotracheal Airway into Trachea, Via Natural or Artificial Opening (ICD-10-PCS; 2019-05-31)
PROC: 5A1945Z Respiratory Ventilation, 24-96 Consecutive Hours (ICD-10-PCS; 2019-05-31)
PROC: 0BH17EZ Insertion of Endotracheal Airway into Trachea, Via Natural or Artificial Opening (ICD-10-PCS; 2019-06-03)
PROC: 5A1955Z Respiratory Ventilation, Greater than 96 Consecutive Hours (ICD-10-PCS; 2019-06-03)
PROC: 0DJ08ZZ Inspection of Upper Intestinal Tract, Via Natural or Artificial Opening Endoscopic (ICD-10-PCS; 2019-06-06)
PROC: 0DBL8ZX Excision of Transverse Colon, Via Natural or Artificial Opening Endoscopic, Diagnostic (ICD-10-PCS; 2019-06-06)
DX: K72.90 Hepatic failure, unspecified without coma (principal); J96.01 Acute respiratory failure with hypoxia; J81.0 Acute pulmonary edema; E87.2 Acidosis; D62 Acute posthemorrhagic anemia; D68.9 Coagulation defect, unspecified; K76.6 Portal hypertension; K63.3 Ulcer of intestine; G93.40 Encephalopathy, unspecified; N17.9 Acute kidney failure, unspecified; J90 Pleural effusion, not elsewhere classified; K92.2 Gastrointestinal hemorrhage, unspecified; I10 Essential (primary) hypertension; E88.09 Other disorders of plasma-protein metabolism, not elsewhere classified; B19.20 Unspecified viral hepatitis C without hepatic coma; R74.8 Abnormal levels of other serum enzymes; K31.89 Other diseases of stomach and duodenum; D50.9 Iron deficiency anemia, unspecified; K31.819 Angiodysplasia of stomach and duodenum without bleeding; K40.90 Unilateral inguinal hernia, without obstruction or gangrene, not specified as recurrent; K74.60 Unspecified cirrhosis of liver; Z79.899 Other long term (current) drug therapy
CPT/HCPCS: 36415; 36430; 36556; 51702; 70450; 70496; 70498; 71045; 74176; 76705; 80048; 80053; 80307; 81003; 82140; 82274; 82550; 82553; 82728; 82805; 83540; 83550; 83605; 83735; 83880; 84443; 84484; 85007; 85025; 85027; 85060; 85610; 85730; 86850; 86900; 86901; 88305; 93005; 93010; 93306; 94002; 94003; 94640; 94660; 96365; 96367; 99292; C9113; J1940; J2543; J2704; J2916; J3010; J3490; J7620; P9016; P9047; P9059; Q9966

== ENCOUNTER 2019-07-04 11:26 | Emergency (ER) | payer OTHER ==
[2019-07-04 12:54] LABS: #Eosinphils 0.2 thou/uL (0.0-0.7); #Lymphocytes 0.9 thou/uL (1.20-3.40); #Monocytes 0.8 thou/uL (0.11-0.59); #Neutrophils 4.7 thou/uL (1.40-6.50); %Basophils 0.2 % (0.0-1.0); %Eosinophils 2.4 % (0.0-10.0); %Lymphocytes 14.1 % (21.0-51.0); %Monocytes 11.5 % (0.0-10.0); %Neutrophils 71.8 % (42.0-75.0); Hemoglobin 10.3 g/dL (14.0-18.0); Mean Corpuscular Hemoglobin 31.4 pg (27.0-31.0); Mean Corpuscular Volume 92.2 fL (78.0-98.0); Mean Platelet Volume 6.6 fL (7.4-10.4); Platelet Count 214 thou/uL (130-400); RBC Distribution Width 16.8 % (11.5-14.5); Red Blood Cell (RBC) Count 3.28 mill/uL (4.70-6.10); White Blood Cell (WBC) Count 6.5 thou/uL (4.8-10.8)
--- NOTE | 2019-07-04 13:11 | RAD ---
EXAM: XR Chest 1 View Portable PROVIDED CLINICAL HISTORY: Tremors COMPARISON: 06/08/2019 FINDINGS: Cardiac and mediastinal silhouette is unchanged in appearance. Left apical and lateral basilar pleura l-parenchymal opacity appears similar to the prior examination. The right lung appears clear. There is no evidence for pneumothorax. IMPRESSION: Stable left hemithoracic pleural-parenchymal opacity, incompletely characterized radiographically.
[2019-07-04 13:16] LABS: ALT (SGPT) 18 U/L (8-55); AST (SGOT) 32 U/L (5-34); Albumin 3.1 g/dL (3.5-5.0); Alkaline Phosphatase 160 U/L (40-150); Anion Gap 13 mmol/L (10-20); BUN (Urea Nitrogen) 12 mg/dL (8.4-25.7); Bilirubin, Total 0.9 mg/dL (0.2-1.2); CK (CPK) 29 U/L (30-200); Calc. Creatinine Clearance 0 mL/min (70-130); Calcium 8.9 mg/dL (7.8-10.44); Carbon Dioxide 26 mmol/L (22-29); Chloride 103 mmol/L (98-107); Estimated GFR-MDRD 90; Glucose 116 mg/dL (70-105); Potassium 3.8 mmol/L (3.5-5.1); Protein, Total 9.1 g/dL (6.0-8.3); Sodium 138 mmol/L (136-145)
[2019-07-04] MEDS ORDERED: Acetaminophen 500 MG TAB ONE (14:44)
== END 2019-07-04 16:05 | disposition home or self-care (01) ==
LOC: ERS 11:26
DX: B34.9 Viral infection, unspecified (principal); I10 Essential (primary) hypertension; Z79.899 Other long term (current) drug therapy
CPT/HCPCS: 36415; 71045; 80053; 82140; 82550; 84484; 85025; 87804; 93005